=== PATIENT | male | born 1940 | race Caucasian/White ===

== ENCOUNTER 2017-03-06 11:44 | Emergency (ER) | payer MEDICARE ==
[2017-03-06 11:53] VITALS: BP 143/75
--- NOTE | 2017-03-06 14:00 | RAD ---
INDICATION: Rib pain after changing a flat COMPARISON: Bone survey July 04, 2016 TECHNIQUE: Multiple views of the ribs were obtained. FINDINGS: Bones: There is no evidence of acute rib fracture. LUNGS: The lungs are clear. There is no pneumothorax. Pleural spaces: There is no evidence of hemothorax. Other: None IMPRESSION: NO ACUTE RIB FRACTURE IS IDENTIFIED.
--- NOTE | 2017-03-21 08:18 | UC ---
Minor Trauma HPI - HPI Summary HPI Summary: Patient presents with complaints of rib pain that occurred while/after he was changing a tire. Pain has been constant and is worse with movement, and/or coughing. He denies SOB, chest pain or abdominal pain. - History of Current Complaint Hx Obtained From: Patient Onset/Duration: Sudden Onset Onset Of Pain: Post Accident Severity Initially: Moderate Severity Currently: Moderate Pain Intensity: 3 Pain Scale Used: 0-10 Numeric Mechanism Of Injury: Blunt Trauma Aggravating Factor(s): Nothing Alleviating Factor(s): Nothing <Gifty Jones - Last Filed: 03/21/17 08:31> <Olivia Klein - Last Filed: 03/22/17 16:37> - History of Current Complaint Chief Complaint: UCTrauma Stated Complaint: RIB INJURY Time Seen by Provider: 03/06/17 12:11 - Allergies/Home Medications Allergies/Adverse Reactions: Allergies Allergy/AdvReac Type Severity Reaction Status Date / Time Sulfasalazine Allergy Unknown Verified 03/06/17 11:53 Reaction Details Home Medications: Home Medications Calcium 1 tab PO DAILY 03/06/17 [History Confirmed 03/06/17] Cholecalciferol [Vitamin D] 1 tab PO DAILY 03/06/17 [History Confirmed 03/06/17] Magnesium 1 tab PO DAILY 03/06/17 [History Confirmed 03/06/17] Metoprolol Tartrate TAB* [Lopressor TAB*] 1 tab PO DAILY 03/06/17 [History Confirmed 03/06/17] Vardenafil (NF) [Levitra (NF)] 20 mg PO DAILY PRN 03/06/17 [History Confirmed ] predniSONE TAB* [Deltasone TAB*] 9 mg PO DAILY 03/06/17 [History Confirmed 03/06] PMH/Surg Hx/FS Hx/Imm Hx Previously Healthy: Yes Other History Of: Negative For: Anticoagulant Therapy - Surgical History Surgical History: Yes Surgery Procedure, Year, and Place: 2010 RIGHT CARPAL TUNNEL RELEASE, [facility]; [facility] LAMINECTOMY 10/20/13 - Family History Known Family History: Positive: Cardiac Disease, Hypertension - Social History Occupation: Employed Part-time Lives: With Family Alcohol Use: Daily Alcohol Amount: 1 glass of wine Daily Substance Use Type: None Smoking Status (MU): Never Smoked Tobacco Amount Used/How Often: SMOKE A PIPE FOR SHORT PERIOD Have You Smoked in the Last Year: No When Did the Patient Quit Smoking/Using Tobacco: MANY YEARS AGO Household Exposure Type: Cigars - Immunization History Most Recent Influenza Vaccination: 2015 Most Recent Tetanus Shot: 10/31/11 Most Recent Pneumonia Vaccination: 02/24/11 <iGfty Jones - Last Filed: 03/21/17 08:31> Review of Systems Constitutional: Negative Skin: Negative Eyes: Negative ENT: Negative Respiratory: Negative Cardiovascular: Negative Gastrointestinal: Negative Genitourinary: Negative Motor: Negative Neurovascular: Negative Musculoskeletal: Myalgia Neurological: Negative Psychological: Negative All Other Systems Reviewed And Are Negative: Yes <Gifty Jones - Last Filed: 03/21/17 08:31> Physical Exam Triage Information Reviewed: Yes Appearance: Well-Appearing Vital Signs: Initial Vital Signs Temp 97.8 F 03/06/17 11:47 Pulse 60 03/06/17 11:47 Resp 16 03/06/17 11:47 BP 143/75 03/06/17 11:47 Pulse Ox 100 03/06/17 11:47 Eye Exam: Normal ENT Exam: Normal Dental Exam: Normal Neck exam: Normal Neck: Positive: 1 Respiratory Exam: Normal Cardiovascular Exam: Normal Abdominal Exam: Normal Musculoskeletal: Positive: Other: - no visible injury on exam/ tenderness on palpation. Neurological Exam: Normal Psychological Exam: Normal Skin Exam: Normal <Gifty Jones - Last Filed: 03/21/17 08:31> Vital Signs: Initial Vital Signs Temp 97.8 F 03/06/17 11:47 Pulse 60 03/06/17 11:47 Resp 03/06/17 11:47 BP 143/75 03/06/17 11:47 Pulse Ox 100 03/06/17 11:47 <Olivia Klein - Last Filed: 03/22/17 16:37> Minor Trauma Course/Dx - Course Course Of Treatment: xrays were obtained and reviewed with the patient as negative. pain addressed f/u in tow days with pcp. - Differential Dx/Diagnosis Differential Diagnosis/HQI/PQRI: Contusion(s) Provider Diagnoses: rib contusion <Gifty Jones - Last Filed: 03/21/17 08:31> Discharge <Gifty Jones - Last Filed: 03/21/17 08:31> <Olivia Klein - Last Filed: 03/22/17 16:37> - Discharge Plan Condition: Stable Disposition: HOME Patient Education Materials: Costochondritis (ED), Contusion in Adults (ED) Referrals: Killian Alvarenga MD [Primary Care Provider] - Attestation Statement User Type: Provider - I was available for consult. This patient was seen by the OSMAR. The patient was not presented to, seen by, or examined by me. -Jerry <Olivia Klein - Last Filed: 03/22/17 16:37>
--- NOTE | 2017-03-21 08:21 | UC ---
Minor Trauma HPI - HPI Summary HPI Summary: Patient presents with complaints of rib pain that occurred while/after he was changing a tire. Pain has been constant and is worse with movement, and/or coughing. He denies SOB, chest pain or abdominal pain. - History of Current Complaint Hx Obtained From: Patient Onset/Duration: Sudden Onset Onset Of Pain: Post Accident Severity Initially: Moderate Severity Currently: Moderate Pain Intensity: 3 Pain Scale Used: 0-10 Numeric Mechanism Of Injury: Blunt Trauma Aggravating Factor(s): Nothing Alleviating Factor(s): Nothing - Risk Factors Penetrating Injury Risk Factors: Negative Compartment Syndrome Risk Factors: Pain <Gifty Jones - Last Filed: 03/21/17 10:17> <Olivia Klein - Last Filed: 03/22/17 16:35> - History of Current Complaint Chief Complaint: UCTrauma Stated Complaint: RIB INJURY Time Seen by Provider: 03/06/17 12:11 - Allergies/Home Medications Allergies/Adverse Reactions: Allergies Allergy/AdvReac Type Severity Reaction Status Date / Time Sulfasalazine Allergy Unknown Verified 03/06/17 11:53 Reaction Details Home Medications: Home Medications Calcium 1 tab PO DAILY 03/06/17 [History Confirmed 03/06/17] Cholecalciferol [Vitamin D] 1 tab PO DAILY 03/06/17 [History Confirmed 03/06/17] Magnesium 1 tab PO DAILY 03/06/17 [History Confirmed 03/06/17] Metoprolol Tartrate TAB* [Lopressor TAB*] 1 tab PO DAILY 03/06/17 [History Confirmed 03/06/17] Vardenafil (NF) [Levitra (NF)] 20 mg PO DAILY PRN 03/06/17 [History Confirmed ] predniSONE TAB* [Deltasone TAB*] 9 mg PO DAILY 03/06/17 [History Confirmed 03/06] PMH/Surg Hx/FS Hx/Imm Hx Previously Healthy: Yes Other History Of: Negative For: Anticoagulant Therapy - Surgical History Surgical History: Yes Surgery Procedure, Year, and Place: 2010 RIGHT CARPAL TUNNEL RELEASE, [facility]; [facility] LAMINECTOMY 10/20/13 - Family History Known Family History: Positive: Hypertension - Social History Occupation: Employed Part-time Lives: Alone Alcohol Use: Daily Alcohol Amount: 1 glass of wine Daily Substance Use Type: None Smoking Status (MU): Never Smoked Tobacco Amount Used/How Often: SMOKE A PIPE FOR SHORT PERIOD Have You Smoked in the Last Year: No When Did the Patient Quit Smoking/Using Tobacco: MANY YEARS AGO Household Exposure Type: Cigars - Immunization History Most Recent Influenza Vaccination: 2015 Most Recent Tetanus Shot: 10/31/11 Most Recent Pneumonia Vaccination: 02/24/11 <Gifty Jones - Last Filed: 03/21/17 10:17> Review of Systems Constitutional: Negative Skin: Negative Eyes: Negative ENT: Negative Respiratory: Negative Cardiovascular: Negative Gastrointestinal: Negative Genitourinary: Negative Motor: Negative Neurovascular: Negative Musculoskeletal: Edema, Myalgia Neurological: Negative Psychological: Negative All Other Systems Reviewed And Are Negative: Yes <Gifty Jones - Last Filed: 03/21/17 10:17> Physical Exam Triage Information Reviewed: Yes Appearance: Well-Appearing Vital Signs: Initial Vital Signs Temp 97.8 F 03/06/17 11:47 Pulse 60 03/06/17 11:47 Resp 16 03/06/17 11:47 BP 143/75 03/06/17 11:47 Pulse Ox 100 03/06/17 11:47 Eye Exam: Normal ENT Exam: Normal Dental Exam: Normal Neck exam: Normal Neck: Positive: 1 Respiratory Exam: Normal Cardiovascular Exam: Normal Abdominal Exam: Normal Musculoskeletal Exam: Normal Neurological Exam: Normal Psychological Exam: Normal Skin Exam: Normal <Gifty Jones - Last Filed: 03/21/17 10:17> Vital Signs: Initial Vital Signs Temp 97.8 F 03/06/17 11:47 Pulse 60 03/06/17 11:47 Resp 16 03/06/17 11:47 BP 143/75 03/06/17 11:47 Pulse Ox 100 03/06/17 11:47 <Olivia Klein - Last Filed: 03/22/17 16:35> Minor Trauma Course/Dx - Course Course Of Treatment: Patient had xrays of his ribs and were read as negative which was reviewed with the patient. Pain was addressed. discharged to follow up with pcp/ortho in 2 days. - Differential Dx/Diagnosis Differential Diagnosis/HQI/PQRI: Contusion(s) Provider Diagnoses: rib contusion <Gifty Jones - Last Filed: 03/21/17 10:17> Discharge <Gifty Jones - Last Filed: 03/21/17 10:17> <Olivia Klein - Last Filed: 03/22/17 16:35> - Discharge Plan Condition: Stable Disposition: HOME Patient Education Materials: Costochondritis (ED), Contusion in Adults (ED) Referrals: Killian Alvarenga MD [Primary Care Provider] - Attestation Statement User Type: Provider - I was available for consult. This patient was seen by the [facility]. The patient was not presented to, seen by, or examined by me. -Jerry <Olivia Klein - Last Filed: 03/22/17 16:35>
--- NOTE | 2017-03-21 08:25 | UC ---
Minor Trauma HPI - HPI Summary HPI Summary: Patient presents with complaints of rib pain that occurred while/after he was changing a tire. Pain has been constant and is worse with movement, and/or coughing. He denies SOB, chest pain or abdominal pain. - History of Current Complaint Hx Obtained From: Patient Onset/Duration: Sudden Onset Onset Of Pain: Post Accident Severity Initially: Moderate Severity Currently: Moderate Pain Intensity: 3 Pain Scale Used: 0-10 Numeric Mechanism Of Injury: Blunt Trauma Aggravating Factor(s): Nothing Alleviating Factor(s): Nothing <Gifty Jones - Last Filed: 03/21/17 08:22> <Olivia Klein - Last Filed: 03/22/17 16:36> - History of Current Complaint Chief Complaint: UCTrauma Stated Complaint: RIB INJURY Time Seen by Provider: 03/06/17 12:11 - Allergies/Home Medications Allergies/Adverse Reactions: Allergies Allergy/AdvReac Type Severity Reaction Status Date / Time Sulfasalazine Allergy Unknown Verified 03/06/17 11:53 Reaction Details Home Medications: Home Medications Calcium 1 tab PO DAILY 03/06/17 [History Confirmed 03/06/17] Cholecalciferol [Vitamin D] 1 tab PO DAILY 03/06/17 [History Confirmed 03/06/17] Magnesium 1 tab PO DAILY 03/06/17 [History Confirmed 03/06/17] Metoprolol Tartrate TAB* [Lopressor TAB*] 1 tab PO DAILY 03/06/17 [History Confirmed 03/06/17] Vardenafil (NF) [Levitra (NF)] 20 mg PO DAILY PRN 03/06/17 [History Confirmed ] predniSONE TAB* [Deltasone TAB*] 9 mg PO DAILY 03/06/17 [History Confirmed 03/06] PMH/Surg Hx/FS Hx/Imm Hx Previously Healthy: Yes Other History Of: Negative For: Anticoagulant Therapy - Surgical History Surgical History: Yes Surgery Procedure, Year, and Place: 2010 RIGHT CARPAL TUNNEL RELEASE, [facility]; [facility]SP LAMINECTOMY 10/20/13 - Social History Occupation: Employed Part-time Lives: Alone Alcohol Use: Daily Alcohol Amount: 1 glass of wine Daily Substance Use Type: None Smoking Status (MU): Never Smoked Tobacco Amount Used/How Often: SMOKE A PIPE FOR SHORT PERIOD Have You Smoked in the Last Year: No When Did the Patient Quit Smoking/Using Tobacco: MANY YEARS AGO Household Exposure Type: Cigars - Immunization History Most Recent Influenza Vaccination: 2016 Most Recent Tetanus Shot: 10/31/11 Most Recent Pneumonia Vaccination: 02/24/11 <Gifty Jones - Last Filed: 03/21/17 08:22> Review of Systems Constitutional: Negative Skin: Negative Eyes: Negative ENT: Negative Respiratory: Negative Cardiovascular: Negative Gastrointestinal: Negative Genitourinary: Negative Motor: Negative Neurovascular: Negative Musculoskeletal: Edema, Myalgia Neurological: Negative Psychological: Negative All Other Systems Reviewed And Are Negative: Yes <Gifty Jones - Last Filed: 03/21/17 08:22> Physical Exam Triage Information Reviewed: Yes Vital Signs: Initial Vital Signs Temp 97.8 F 03/06/17 11:47 Pulse 60 03/06/17 11:47 Resp 16 03/06/17 11:47 BP 143/75 03/06/17 11:47 Pulse Ox 100 03/06/17 11:47 Eye Exam: Normal ENT Exam: Normal Dental Exam: Normal Neck exam: Normal Neck: Positive: 1 Respiratory Exam: Normal Cardiovascular Exam: Normal Abdominal Exam: Normal Musculoskeletal Exam: Normal Musculoskeletal: Positive: Other: - Ribs; inspection no bruising, or edema noted. tenderness to palpation of left lower ribs #7-9. Neurological Exam: Normal Psychological Exam: Normal Skin Exam: Normal <Gifty Jones - Last Filed: 03/21/17 08:22> Vital Signs: Initial Vital Signs Temp 97.8 F 03/06/17 11:47 Pulse 60 03/06/17 11:47 Resp 03/06/17 11:47 BP 143/75 03/06/17 11:47 Pulse Ox 100 03/06/17 11:47 <Olivia Klein - Last Filed: 03/22/17 16:36> Minor Trauma Course/Dx - Course Course Of Treatment: Patient presents s/p rib injury. xrays were obtained and were read as negative and the results were discussed with the patient. pain addressed recommend f/u with pcp in two days. - Differential Dx/Diagnosis Provider Diagnoses: rib fractures <Gifty Jones - Last Filed: 03/21/17 08:22> Discharge <Gifty Jones - Last Filed: 03/21/17 08:22> <Olivia Klein - Last Filed: 03/22/17 16:36> - Discharge Plan Condition: Stable Disposition: HOME Patient Education Materials: Costochondritis (ED), Contusion in Adults (ED) Referrals: Killian Alvarenga MD [Primary Care Provider] - Attestation Statement User Type: Provider - I was available for consult. This patient was seen by the OSM[facility]. The patient was not presented to, seen by, or examined by me. -Jerry <Olivia Klein - Last Filed: 03/22/17 16:36>
--- NOTE | 2017-03-21 08:26 | UC ---
Minor Trauma HPI - HPI Summary HPI Summary: Patient presents with complaints of rib pain that occurred while/after he was changing a tire. Pain has been constant and is worse with movement, and/or coughing. He denies SOB, chest pain or abdominal pain. - History of Current Complaint Hx Obtained From: Patient Onset/Duration: Sudden Onset Onset Of Pain: Post Accident Severity Initially: Moderate Severity Currently: Moderate Pain Intensity: 3 Pain Scale Used: 0-10 Numeric Mechanism Of Injury: Blunt Trauma Aggravating Factor(s): Nothing Alleviating Factor(s): Nothing <Gifty Jones - Last Filed: 03/21/17 08:25> <Olivia Klein - Last Filed: 03/22/17 16:37> - History of Current Complaint Chief Complaint: UCTrauma Stated Complaint: RIB INJURY Time Seen by Provider: 03/06/17 12:11 - Allergies/Home Medications Allergies/Adverse Reactions: Allergies Allergy/AdvReac Type Severity Reaction Status Date / Time Sulfasalazine Allergy Unknown Verified 03/06/17 11:53 Reaction Details Home Medications: Home Medications Calcium 1 tab PO DAILY 03/06/17 [History Confirmed 03/06/17] Cholecalciferol [Vitamin D] 1 tab PO DAILY 03/06/17 [History Confirmed 03/06/17] Magnesium 1 tab PO DAILY 03/06/17 [History Confirmed 03/06/17] Metoprolol Tartrate TAB* [Lopressor TAB*] 1 tab PO DAILY 03/06/17 [History Confirmed 03/06/17] Vardenafil (NF) [Levitra (NF)] 20 mg PO DAILY PRN 03/06/17 [History Confirmed ] predniSONE TAB* [Deltasone TAB*] 9 mg PO DAILY 03/06/17 [History Confirmed 03/06] PMH/Surg Hx/FS Hx/Imm Hx Previously Healthy: Yes Other History Of: Negative For: Anticoagulant Therapy - Surgical History Surgical History: Yes Surgery Procedure, Year, and Place: 2010 RIGHT CARPAL TUNNEL RELEASE, [facility]; [facility]SP LAMINECTOMY 10/20/13 - Social History Occupation: Employed Part-time Lives: Alone Alcohol Use: Daily Alcohol Amount: 1 glass of wine Daily Substance Use Type: None Smoking Status (MU): Never Smoked Tobacco Amount Used/How Often: SMOKE A PIPE FOR SHORT PERIOD Have You Smoked in the Last Year: No When Did the Patient Quit Smoking/Using Tobacco: MANY YEARS AGO Household Exposure Type: Cigars - Immunization History Most Recent Influenza Vaccination: 2016 Most Recent Tetanus Shot: 10/31/11 Most Recent Pneumonia Vaccination: 02/24/11 <Gifty Jones - Last Filed: 03/21/17 08:25> Review of Systems Constitutional: Negative Skin: Negative Eyes: Negative ENT: Negative Respiratory: Negative Cardiovascular: Negative Gastrointestinal: Negative Genitourinary: Negative Motor: Negative Neurovascular: Negative Musculoskeletal: Edema, Myalgia Neurological: Negative Psychological: Negative All Other Systems Reviewed And Are Negative: Yes <Gifty Jones - Last Filed: 03/21/17 08:25> Physical Exam Triage Information Reviewed: Yes Vital Signs: Initial Vital Signs Temp 97.8 F 03/06/17 11:47 Pulse 60 03/06/17 11:47 Resp 16 03/06/17 11:47 BP 143/75 03/06/17 11:47 Pulse Ox 100 03/06/17 11:47 Eye Exam: Normal ENT Exam: Normal Dental Exam: Normal Neck exam: Normal Neck: Positive: 1 Respiratory Exam: Normal Cardiovascular Exam: Normal Abdominal Exam: Normal Musculoskeletal Exam: Normal Musculoskeletal: Positive: Other: - Ribs; inspection no bruising, or edema noted. tenderness to palpation of left lower ribs #7-9. Neurological Exam: Normal Psychological Exam: Normal Skin Exam: Normal <Gifty Jones - Last Filed: 03/21/17 08:25> Vital Signs: Initial Vital Signs Temp 97.8 F 03/06/17 11:47 Pulse 60 03/06/17 11:47 Resp 16 03/06/17 11:47 BP 143/75 03/06/17 11:47 Pulse Ox 100 03/06/17 11:47 <Olivia Klein - Last Filed: 03/22/17 16:37> Minor Trauma Course/Dx - Course Course Of Treatment: Patient presents s/p rib injury. xrays were obtained and were read as negative and the results were discussed with the patient. pain addressed recommend f/u with pcp in two days. - Differential Dx/Diagnosis Differential Diagnosis/HQI/PQRI: Contusion(s) Provider Diagnoses: rib contusion <Gifty Jones - Last Filed: 03/21/17 08:25> Discharge <Gifty Jones - Last Filed: 03/21/17 08:25> <Olivia Klein - Last Filed: 03/22/17 16:37> - Discharge Plan Condition: Stable Disposition: HOME Patient Education Materials: Costochondritis (ED), Contusion in Adults (ED) Referrals: Killian Alvarenga MD [Primary Care Provider] - Attestation Statement User Type: Provider - I was available for consult. This patient was seen by the OSMAR. The patient was not presented to, seen by, or examined by me. -Jerry <Olivia Klein - Last Filed: 03/22/17 16:37>
== END 2017-03-06 14:12 | disposition home or self-care (01) ==
LOC: UCEAST 11:44
DX: S20.20XA Contusion of thorax, unspecified, initial encounter (principal); X50.0XXA Overexertion from strenuous movement or load, initial encounter; Y93.89 Activity, other specified; Y92.9 Unspecified place or not applicable; Z88.8 Allergy status to other drugs, medicaments and biological substances; Z87.891 Personal history of nicotine dependence
CPT/HCPCS: 93005; 99211; G0463

== ENCOUNTER 2017-09-30 08:43 | Day surgery (SDC) | payer MEDICARE ==
[~2017-09-30 08:43] MED LIST: Acetaminophen TAB* 325 MG PO PRN; Buffered Lidocaine 0.9% SYRIN* 5 ML/SYR SYRINGE INTRADERM ONE
[2017-09-30] MEDS ORDERED: Neomycin/Polymy/Dex OPTH.SUSP* MAXITROL 0.1% 5 ML ONE (09:30)
[2017-09-30] MEDS ORDERED: Lidocaine 2% EPI 1:200000 MPF*10-20 ML VIAL ONE (09:30)
[2017-09-30] MEDS ORDERED: Proparacaine 0.5% OPHTH.SOL* 15 ML BTL ONE (09:30)
[2017-09-30] MEDS ORDERED: Lidocaine 1% MPF* 2 ML VIAL ONE (09:30)
[2017-09-30] MEDS ORDERED: Povidone Iodine 5% OPTH* 30 ML BTL ONE (09:30)
[2017-09-30] MEDS ORDERED: Phenylephrine 2.5% OPTH.SOL* 2 ML BTL ONE (09:30)
[2017-09-30] MEDS ORDERED: Cyclopentolate 1% OPTH.SOL* 2 ML BTL ONE (09:30)
[2017-09-30] MEDS ORDERED: acetaZOLAMIDE TAB* 250 MG ONE (09:30)
[2017-09-30] MEDS ORDERED: Ketorolac 0.5% OPHTH (NF) 0.5 % 5 ML BTL ONE (09:30)
[2017-09-30] MEDS ORDERED: Midazolam* 1 MG/ML 2 ML VIAL (2 MG) ONE (11:10)
[2017-09-30 12:06] VITALS: BP 115/60
--- NOTE | 2017-09-30 15:12 | OP ---
DATE OF OPERATION: 09/30/17 - [facility] DATE OF : 38 SURGEON: Valerio Smiley MD PREOPERATIVE DIAGNOSIS: Cataract, right eye. POSTOPERATIVE DIAGNOSIS: Cataract, right eye. OPERATIVE PROCEDURE: Extracapsular cataract extraction with intraocular lens implant right eye. DESCRIPTION OF PROCEDURE: The patient was brought to the operating room after being given 1/2% Alcaine with epinephrine drops in the preoperative area. The eye was prepped and draped in the usual sterile fashion. Sterile drape and eyelid speculum were placed. Again, topical 1/2% Alcaine with epinephrine was given. A paracentesis incision was made at the 9 o'clock position with the No.75 blade. Clear cornea incision 2.2 x 2.2-mm was created at the 12 o'clock position starting at the anterior limbus using the 2.2-mm keratome. The anterior chamber was irrigated with 0.4 mL of 1% non-preservative intracameral lidocaine and filled with DisCoVisc. A capsulorrhexis was completed using the cystotome and the Utrata forceps. Hydrodissection was performed with balanced salt solution. The lens nucleus was removed with the Phacoemulsification handpiece without incident. Cortex was removed with the irrigation-aspiration handpiece. The capsular bag was re-inflated using DisCoVisc and an [id number] 22.5 implant was inserted with the shooter. Pupil was only 3 mm, so a Malyugin ring was used to dilate the pupil prior to capsulorrhexis and removed after the insertion of the lens. The irrigation- aspiration handpiece was used to remove all residual DisCoVisc. The eye was refilled with balanced salt solution and the wound checked and found to be watertight. Topical Maxitrol drops were given. [id number]/[facility] #: [id number] [facility]
== END 2017-09-30 11:58 | disposition home or self-care (01) ==
LOC: OREAST 08:43
PROVIDERS: ATTEND Specialist
DX: H25.811 Combined forms of age-related cataract, right eye (principal); H47.291 Other optic atrophy, right eye; M31.6 Other giant cell arteritis; I48.91 Unspecified atrial fibrillation; Z79.01 Long term (current) use of anticoagulants; I10 Essential (primary) hypertension
CPT/HCPCS: A9270-GY; J2250; V2632

== ENCOUNTER 2018-02-02 08:45 | Inpatient (IN) | payer MEDICARE ==
--- NOTE | 2018-01-21 13:36 | HP ---
HISTORY AND PHYSICAL: DATE OF SURGERY: 02/02/18 DATE OF OFFICE VISIT: 01/20/18 SURGEON: Huyen Canada MD * (DICTATED BY ONIEL CHURCH) PROCEDURE: Right total knee arthroplasty. CHIEF COMPLAINT: Right knee pain. HISTORY OF PRESENT ILLNESS: Mr. Garibay is a 77-year-old gentleman who has continued complaints of right knee pain secondary to end-stage osteoarthritis. He has failed conservative treatment and elected to proceed with a right total knee arthroplasty which is scheduled for 02/02/18 PAST MEDICAL HISTORY: Polymyalgia rheumatica, hypertension, AFib, and BPH. PAST SURGICAL HISTORY: Cervical diskectomy, right carpal tunnel release, and cataract removal. CURRENT MEDICATIONS: 1. Eliquis 2.5 mg twice a day. 2. Magnesium oxide 250 mg daily. 3. Milk thistle. 4. Vitamin D. 5. Vitamin C. 6. Melatonin. 7. Tamsulosin 0.4 mg twice a day. 8. Metoprolol 25 mg twice a day. 9. Sotalol 80 mg twice a day. 10. Probiotic calcium. 11. Budesonide 3 mg daily. ALLERGIES: SULFASALAZINE. FAMILY HISTORY: Diabetes, Parkinson's, liver disease, and cancer. SOCIAL HISTORY: He is a 77-year-old gentleman, lives with his . He does not smoke or use drugs. He uses occasional alcohol REVIEW OF SYSTEMS: A complete 14-point review of systems was reviewed with the patient and was all negative and noncontributory. Denies history of DVT, PE, hepatitis, HIV, or anesthesia problems. PHYSICAL EXAMINATION GENERAL: He is well developed, well nourished, in no acute distress. VITAL SIGNS: He stands 6 feet 3 inches tall and weighs 147 pounds. His blood pressure is 148/84 and heart rate is 64. HEENT: Normocephalic and atraumatic. NECK: Supple. No palpable lymph nodes. PULMONARY: The lungs are clear to auscultation bilaterally. CARDIO: Regular, rate, and rhythm. Strong S1 and S2. ABDOMEN: Soft, nontender, and nondistended. NEUROLOGIC: He is alert and oriented x3. MUSCULOSKELETAL: Right lower extremity, the skin is intact. There are no open wounds or abrasions. There is a moderate joint fusion. He has some tenderness over the medial and lateral joint line. Range of motion is 25 to 100 degrees of flexion. 5/5 lower extremity strength. 2+ dorsalis pedis pulses and intact sensation. There is severe patellofemoral crepitus and severe pain with range of motion. ASSESSMENT AND PLAN: Mr. Garibay is a 77-year-old gentleman with end-stage osteoarthritis of the right knee who has failed conservative treatment and elected to proceed with a right total knee arthroplasty which is scheduled for 02/02/[address] Canada discussed the risks and the benefits of the surgery at today's visit and all of his questions were answered. He will follow up with Dr. Canada 2 weeks after the surgery. [facility]IEL CHURCH [id number]/[facility] #: [id number] [facility]
[~2018-02-02 08:45] MED LIST changes: -Acetaminophen TAB* 325 MG PO PRN
--- OUTSIDE RECORDS SUMMARY | 2018-02-02 08:49 | XMS REPORT ---
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 Killian Alvarenga MD Primary Care Physician Unavailable Payers Type Date Identification Payment Subscriber Numbers Provider Health Maintenance Effective: Policy Number: Medicare Sourav Dean ([facility]) 06/15/2013 [id number] [facility] Group Number: [id number] [address] [address] PayID: [id number] KI Yu 05[address] Health Maintenance Expires: Policy Number: Medicare Sourav Dean ([facility]) 06/14/2013 [id number] [facility] Lani PayID: [id number] [address] [address] KI Yu [address] Problems Date Description Provider Status Onset: 09/06/2013 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 Active Onset: 12/11/2017 Localized, primary osteoarthritis Huyen Canada M.D. Active Family History Date Family Member(s) Problem(s) Comments General Diabetes General Hypertension General Alzheimer's Disease General Stomach Cancer General Rheumatoid Arthritis Social History Type Date Description Comments Marital Status Lives With Occupation Retired Cigarette Use Never Smoked Cigarettes Pt denies smoking cigar, pipe, e-cigarettes, or using chewing tobacco ETOH Use Consumes 1 glass of wine per 4-5oz day Recreational Drug Use Denies Drug Use Smoking Patient has never smoked Daily Caffeine Consumes on average 2 cups of regular coffee per day Exercise Type/Frequency Exercises regularly Allergies, Adverse Reactions, Alerts Date Description Reaction Status Severity Comments 02/27/2016 Sulfasalazine active 09/06/2013 NKDA inactive Medications Medication Date Status Form Strength Qnty SIG Indications Ordering Provider Eliquis 10/21/ Active Tablets 2.5mg 90tab 1 tablet by Freddie López 2018 s mouth twice Alegria, a day. DO FACC Magnesium Oxide 05/17/ Active Tablets 250mg take one Freddie López -MG Supplement 2015 tablet daily Alegria, DO FACC Compression 04/19/ Active Misc Please have R60.0 Freddie López Stockings 2014 fitted with Alegria, appropriate DO FACC size/pressur e for dependent edema Milk Thistle / Active Capsules 300mg 1 cap po Unknown 0000 daily Vitamin D High / Active Capsules 1000Unit 1 cap po Unknown Potency 0000 daily Vitamin C / Active Chewtabs 500mg 1 by mouth Unknown 0000 every day Melatonin TR / Active Tablets 1mg 1/2 tab po Unknown 0000 ER at bedtime as needed Tamsulosin HCL / Active Capsules 0.4mg 90cap 1 by mouth Unknown 0000 s daily ( decreased from 2 tab daily since September 2016) Metoprolol / Active Tablets 25mg 180ta 1 tablet by Freddie López Tartrate 0000 bs mouth twice Alegria, daily DO FACC Sotalol HCL / Active Tablets 80mg 180ta 1 tablet by Freddie López 0000 bs mouth twice Alegria, daily DO FACC Probiotic / Active Capsules 1 by mouth Unknown 0000 every day Calcium / Active Capsules 250mg 1 po daily Unknown 0000 Budesonide / Active Caps DR 3mg 1 by mouth Unknown 0000 Part every day as directed Amoxicillin / Active Unknown 0000 Eliquis 08/13/ Hx Tablets 5mg 1 by mouth Unknown 2017 - twice a day 2017 Augmentin 07/09/ Hx Tablets 500-125mg 20tab one by mouth K11.21 Be 2016 - s twice a day Ruparelia days, Not , M.D. 2015 taking Metoprolol 04/19/ Hx Tablets 100mg 60tab 2 tabs by Freddie López Succinate ER 2014 - ER 24HR s mouth every Alegria, 05/16/ morning DO FAC 2014 Nifedipine ER 08/03/ Hx Tablets 30mg 30tab 1 po qd Scar López 2013 - ER 24HR s (winter Chikis, ) Danilo 2013 Nifedipine 07/20/ Hx Capsules 10mg 180ca 1 bid Scar López 2014 - ps (pradeep Diop, only) Danilo 2013 Amlodipine /00/ Hx Tablets 2.5mg 100ta 1 po qd Unknown Besylate 0000 - bs 2014 Aspirin Adult /00/ Hx Chewtabs 81mg 30uni 1 po qd Unknown Low Strength 0000 - ts 2014 Glucosamine /00/ Hx Capsules 1500Com 1 po qd Unknown Chondroitin 1500 0000 - Complex 2013 Diphenoxylate-At 00/ Hx Tablets 2.5-0.025 jae Kellogg 0000 - mg Georgi, 2013 Afeditab CR 00/ Hx Tablets 30mg 1 po qd Unknown 0000 - ER 24HR (winter) 2013 Cholestyramine 00/00/ Hx Packet 4gm 20uni 1 packet Unknown 0000 - ts qday 2013 Imodium A-D 00/ Hx Tablets 2mg 50tab take 1 Unknown 0000 - s tablet by 03/15/ mouth 8 2014 times a day after each loose stool for diarrhea Budesonide ER 00/00/ Hx Caps ER 3mg 90cap 2 caps a day Unknown 0000 - 24HR s 2014 Magnesium /00/ Hx Tablets 200mg 1 by mouth Unknown 0000 - every day 2014 Probiotic /00/ Hx Capsules 1 by mouth Unknown Acidophilus And 0000 - every day Bifidus 2015 Prednisone 00/00/ Hx Tablets 5mg 2 qd Unknown 0000 - 2014 Doxycycline 00/00/ Hx Capsules 100mg 2 qd Unknown Hyclate 0000 - 2014 Sulfasalazine /00/ Hx Tablets 500mg 1 to 4 tabs Unknown 0000 - daiy 2015 Budesonide ER 00/00/ Hx Caps ER 3mg 1-2 cap po Unknown 0000 - 24HR daily (on until 2017 prednisone finished) Fish Oil 00/00/ Hx Capsules 1000mg 1 by mouth Unknown 0000 - every day 2015 Melatonin /00/ Hx Tablets 1mg 1/2 tablet Unknown 0000 - po as needed 2015 sleep Prednisone 0000/ Hx Tablets 5mg 1 to 2 tabs Unknown 0000 - po daily prn 2015 Iron 00/ Hx Tablets 28mg 1 by mouth Unknown 0000 - every other day(pt takes 2018 sporadically ) Prednisone 0000/ Hx Tablets 1mg 1 by mouth Unknown 0000 - every day 12/29/ for a week 2017 then will stop ( finished treatment 11/15/17) Levitra / Hx Tablets 20mg as needed Unknown 0000 - 2017 Medications Administered in Office Medication Date Status Form Strength Qnty SIG Indications Ordering Provider Technetium TC Administered Injection Freddie S. 99M 015 DO Raji Tetrofosmin, FACC Per Unit Dose Up To 40 Millicuries Celestone 3 mg Administered Injection Yeni and 3mg 012 Stephen leija M.D. Celestone 3 mg Administered Injection Yeni and 3mg 012 Stephen leija M.D. Celestone 3 mg Administered Injection Yeni and 3mg 011 Stephen leija M.D. Vital Signs Date Vital Result Comment 01/20/2018 Height 63.5 inches 5'3.50" Weight 147.00 lb Heart Rate 64 /min BP Systolic 148 mmHg BP Diastolic 84 mmHg BMI (Body Mass Index) 25.6 kg/m2 01/11/2018 Height 63.5 inches 5'3.50" Weight 149.00 lb Heart Rate 64 /min BP Systolic Sitting 106 mmHg Lue reg cuff BP Diastolic Sitting 70 mmHg Lue reg cuff BP Systolic Standing 110 mmHg Lue reg cuff BP Diastolic Standing 70 mmHg Lue reg cuff Respiratory Rate 16 /min BMI (Body Mass Index) 26.0 kg/m2 12/11/2017 Height 63.5 inches 5'3.50" Weight 148.00 lb Heart Rate 64 /min BP Systolic 140 mmHg BP Diastolic 84 mmHg Pain Level 4 BMI (Body Mass Index) 25.8 kg/m2 10/21/2017 Height 65 inches 5'5" Weight 152.00 lb Heart Rate 72 /min BP Systolic Sitting 132 mmHg lue reg cuff BP Diastolic Sitting 70 mmHg lue reg cuff BP Systolic Standing 118 mmHg lue reg cuff BP Diastolic Standing 62 mmHg lue reg cuff Respiratory Rate 16 /min BMI (Body Mass Index) 25.3 kg/m2 Ejection Fraction 60-65% 04/10/2015 echo 07/07/2017 Height 65 inches 5'5" Weight 145.00 lb Heart Rate 71 /min BP Systolic Sitting 130 mmHg BP Diastolic Sitting 78 mmHg Respiratory Rate 16 /min BMI (Body Mass Index) 24.1 kg/m2 02/24/2017 Height 65 inches 5'5" Weight 154.00 lb with shoes Heart Rate 62 /min BP Systolic Sitting 134 mmHg Lue reg cuff BP Diastolic Sitting 74 mmHg Lue reg cuff BP Systolic Standing 136 mmHg Lue reg cuff BP Diastolic Standing 80 mmHg Lue reg cuff Respiratory Rate 17 /min BMI (Body Mass Index) 25.6 kg/m2 Ejection Fraction 60-65% 04/10/2015-echo 08/15/2016 Height 65 inches 5'5" Weight 152.00 lb with shoes Heart Rate 74 /min BP Systolic Sitting 140 mmHg Rue reg cuff BP Diastolic Sitting 70 mmHg Rue reg cuff BP Systolic Standing 138 mmHg Rue reg cuff BP Diastolic Standing 70 mmHg Rue reg cuff Respiratory Rate 16 /min BMI (Body Mass Index) 25.3 kg/m2 Ejection Fraction 60-65% 04/10/2015-echo 04/16/2016 Heart Rate 72 /min BP Systolic 170 mmHg BP Diastolic 90 mmHg Respiratory Rate 18 /min Body Temperature 97.7 F 04/15/2016 Height 65 inches 5'5" Weight 140.00 lb Heart Rate 82 /min BP Systolic Sitting 150 mmHg BP Diastolic Sitting 78 mmHg Respiratory Rate 18 /min Body Temperature 98.3 F BMI (Body Mass Index) 23.3 kg/m2 04/01/2016 Height 65 inches 5'5" Weight 140.00 lb Heart Rate 64 /min BP Systolic Sitting 142 mmHg BP Diastolic Sitting 70 mmHg BMI (Body Mass Index) 23.3 kg/m2 02/27/2016 Height 65 inches 5'5" Weight 146.00 lb w/ shoes Heart Rate 68 /min BP Systolic Sitting 138 mmHg Rue, reg cuff BP Diastolic Sitting 74 mmHg Rue, reg cuff BP Systolic Standing 134 mmHg Rue BP Diastolic Standing 78 mmHg Rue Respiratory Rate 16 /min BMI (Body Mass Index) 24.3 kg/m2 Ejection Fraction 60-65% as of 04/10/15 echo 09/25/2015 Height 65 inches 5'5" Weight 139.00 lb Heart Rate 64 /min BP Systolic Sitting 132 mmHg BP Diastolic Sitting 78 mmHg Respiratory Rate 16 /min BMI (Body Mass Index) 23.1 kg/m2 08/16/2015 Height 65 inches 5'5" Weight 136.00 lb with shoe Heart Rate 60 /min BP Systolic Sitting 128 mmHg Ra reg cuff BP Diastolic Sitting 70 mmHg Ra reg cuff BP Systolic Standing 126 mmHg Ra reg cuff BP Diastolic Standing 72 mmHg Ra reg cuff Respiratory Rate 16 /min BMI (Body Mass Index) 22.6 kg/m2 Ejection Fraction 60-65% 04/10/15 07/09/2015 Weight 139.00 lb Heart Rate 62 /min BP Systolic 110 mmHg BP Diastolic 70 mmHg 05/17/2015 Height 65 inches 5'5" Weight 139.00 lb with shoes Heart Rate 70 /min sit and 74 stand BP Systolic Sitting 146 mmHg LA reg cuff BP Diastolic Sitting 72 mmHg LA reg cuff BP Systolic Standing 148 mmHg LA reg cuff BP Diastolic Standing 78 mmHg LA reg cuff Respiratory Rate 17 /min BMI (Body Mass Index) 23.1 kg/m2 Ejection Fraction 60-65% date 04/10/15 ECHO 05/01/2015 Height 65 inches 5'5" Weight 142.00 lb with shoes Heart Rate 68 /min BP Systolic Sitting 132 mmHg LA, reg cuff BP Diastolic Sitting 74 mmHg LA, reg cuff BP Systolic Standing 126 mmHg LA BP Diastolic Standing 74 mmHg LA Respiratory Rate 16 /min BMI (Body Mass Index) 23.6 kg/m2 Ejection Fraction 60-65% 04/10/2015 04/19/2015 Height 65 inches 5'5" Weight 142.00 lb w/ shoes Heart Rate 102 /min irreg BP Systolic Sitting 110 mmHg Rue, reg cuff BP Diastolic Sitting 80 mmHg Rue, reg cuff BP Systolic Standing 96 mmHg Rue BP Diastolic Standing 60 mmHg Rue Respiratory Rate 18 /min BMI (Body Mass Index) 23.6 kg/m2 Ejection Fraction 60-65% as of 04/10/15 echo 02/06/2015 Height 65 inches 5'5" Weight 142.00 lb Heart Rate 78 /min BP Systolic Sitting 140 mmHg BP Diastolic Sitting 80 mmHg Pain Level 1 hands BMI (Body Mass Index) 23.6 kg/m2 11/23/2014 Height 65 inches 5'5" Weight 139.00 lb Heart Rate 68 /min BP Systolic Sitting 124 mmHg BP Diastolic Sitting 70 mmHg Respiratory Rate 20 /min BMI (Body Mass Index) 23.1 kg/m2 04/12/2014 Height 65 inches 5'5" Weight 130.00 lb Heart Rate 72 /min BP Systolic Sitting 126 mmHg BP Diastolic Sitting 66 mmHg Respiratory Rate 16 /min BMI (Body Mass Index) 21.6 kg/m2 02/03/2014 Weight 135.00 lb Heart Rate 68 /min BP Systolic Sitting 128 mmHg BP Diastolic Sitting 82 mmHg Pain Level 0 12/20/2013 Height 65 inches 5'5" Weight 135.00 lb Heart Rate 60 /min BP Systolic Sitting 110 mmHg BP Diastolic Sitting 60 mmHg Pain Level 0 BMI (Body Mass Index) 22.5 kg/m2 11/08/2013 Height 65 inches 5'5" Weight 133.00 lb BP Systolic 116 mmHg BP Diastolic 66 mmHg Pain Level 0 BMI (Body Mass Index) 22.1 kg/m2 10/12/2013 Height 65 inches 5'5" Weight 143.00 lb Heart Rate 80 /min BP Systolic Sitting 142 mmHg BP Diastolic Sitting 80 mmHg Respiratory Rate 16 /min BMI (Body Mass Index) 23.8 kg/m2 09/23/2013 Height 65 inches 5'5" Weight 143.00 lb BP Systolic 112 mmHg BP Diastolic 80 mmHg Pain Level 0 BMI (Body Mass Index) 23.8 kg/m2 09/06/2013 Height 65 inches 5'5" Weight 144.00 lb BP Systolic 120 mmHg BP Diastolic 74 mmHg Pain Level 0 BMI (Body Mass Index) 24.0 kg/m2 08/12/2013 Heart Rate 70 /min BP Systolic Sitting 150 mmHg BP Diastolic Sitting 80 mmHg Respiratory Rate 16 /min 08/06/2010 Height 65 inches 5'5" Weight 145.00 lb Heart Rate 87 /min BP Systolic 153 mmHg BP Diastolic 89 mmHg BMI (Body Mass Index) 24.1 kg/m2 Results Test Date Test Result H/L Range Note CBC No Diff 10/12/2013 White Blood Count 7.0 10^3/uL 4.8-10.8 Red Blood Count 4.29 10^6/uL 4.0-5.4 Hemoglobin 13.6 g/dL Low 14.0-18.0 Hematocrit 40 % Low 42-52 Mean Corpuscular Volume 92 fL 80-94 Mean Corpuscular Hemoglobin 32 pg High 27-31 Mean Corpuscular HGB Conc 34 g/dL 31-36 Red Cell Distribution Width 13 % 10.5-15 Platelet Count 312 10^3/uL 150-450 Mean Platelet Volume 6 um3 Low 7.4-10.4 Basic Metabolic Panel 10/12/2013 Sodium 132 mmol/L Low 133-145 Potassium 4.3 mmol/L 3.7-5.6 Chloride 99 mmol/L Low 101-111 Co2 Carbon Dioxide 28 mmol/L 22-32 Anion Gap 5 mmol/L 2-11 Glucose 104 mg/dL High 70-100 Blood Urea Nitrogen 12 mg/dL 6-24 Creatinine 0.81 mg/dL 0.67-1.17 BUN/Creatinine Ratio 14.8 8-20 Calcium 8.6 mg/dL 8.6-10.3 Egfr Non- 93.2 >60 Egfr 119.8 >60 1 Type & Screen 10/12/2013 Patient Blood Type B Positive Antibody Screen NEGATIVE 1 Because ethnic data is not always readily available, this report includes an eGFR for both -Americans and non- Americans. The National Kidney Disease Education Program (NKDEP) does not endorse the use of the MDRD equation for patients that are not between the ages of 18 and 70, are , have extremes of body size, muscle mass, or nutritional status, or are non- or non-. According to the National Kidney Foundation, irrespective of diagnosis, the stage of the disease is based on the level of kidney function: Stage Description GFR(mL/min/1.73 m(2)) 1 Kidney damage with normal or decreased GFR 90 2 Kidney damage with mild decrease in GFR 60-89 3 Moderate decrease in GFR 30-59 4 Severe decrease in GFR 15-29 5 Kidney failure <15 (or dialysis) Procedures Date CPT Code Description Status Comment 01/11/2018 00800 EKG Tracing & Interpretation Completed 02/24/2017 25332 EKG Tracing & Interpretation Completed 08/15/2016 54305 EKG Tracing & Interpretation Completed 05/12/2016 Diabetic Retinal Eye Exam Completed Document: 05/12/16 - Consult Ophthalmology - Baljit 04/11/2016 Diabetic Retinal Eye Exam Completed Document: 04/11/16 - Consult Ophthalmology - Valerio 02/27/2016 40626 EKG Tracing & Interpretation Completed 08/16/2015 40166 EKG Tracing & Interpretation Completed 05/17/2015 14947 EKG Tracing & Interpretation Completed 05/08/2015 79069 EKG, Interpretation Only Completed 05/07/2015 37605 EKG, Interpretation Only Completed 05/06/2015 39221 EKG, Interpretation Only Completed 05/05/2015 71144 EKG, Interpretation Only Completed 05/01/2015 14570 EKG Tracing & Interpretation Completed 04/25/2015 76007 Stress Test Completed 04/25/2015 16258 Myocardial Perfusion Imaging Completed Tomographic (Spect) Multiple Studies 04/19/2015 39821 EKG Tracing & Interpretation Completed 04/10/2015 00412 ECHO Transthorasic Realtime Completed 2D W Doppler & Color Flow Hosp 10/20/2013 13282 Laminectomy W/Expl &/Or Completed Decomp Of Spinal Cord &/Or Cauda Equina 10/12/2013 78733 EKG, Interpretation Only Completed 10/27/2011 Injection, Carpal Tunnel Completed 03/26/2011 86811 Carpal Tunnel Release Completed 03/26/201182756 Carpal Tunnel Release Completed 12/05/2010 92273 Rad Shoulder Comp, Min. 2 Completed Views 08/06/2010 Injection, Carpal Tunnel Completed Encounters Type Date Location Provider CPT E/M Dx Office Visit 01/11/2018 [facility] Alegria, 67447 Z01.810 3:40p [facility] Office Visit 12/11/2017 [facility] Huyen Canada M.D. 15524 M25.561 10:00a Of [place] M25.562 M25.461 M25.462 M17.0 Office Visit 10/21/2017 3:40p [facility] [place] [address] I48.0 [facility] M31.6 Office Visit 07/07/2017 2:30p [facility] Scar Diop 33677 M31.6 Services Of Audra Carrasco M47.12 Office Visit 02/24/2017 9:40a [facility] [place] [address] I48.0 [facility] M31.6 Office Visit 08/15/2016 8:40a [facility] [place] [place] [address] I48.0 [facility] FACC M31.6 Office Visit 04/16/2016 8:30a [facility] Warren Parminder, 38457 M31.6 [facility] Office Visit 04/15/2016 2:30p [facility] Zurita, 94434 M31.6 [facility] MD Office Visit 04/01/2016 9:30a [facility] Scar López 92149 M47.12 Danilo Diop Office Visit 02/27/2016 8:40a [facility] Freddie Alegria, 35914 I48.0 DO FACC Office Visit 09/25/2015 9:45a [facility] Scar López 03217 G56.01 Danilo Diop M47.12 Office Visit 08/16/2015 1:40p [facility] [place] [address] I48.0 [facility] FAC Office Visit 07/09/2015 2:15p [facility] [place] [facility], 30634 K11.21 [facility] 2:00p [facility] [place] [address] I48.0 [facility] E87.1 D64.9 Office Visit 05/08/2015 2:33p [facility] Bernice Gunter, ADMISSIONS CONSULTANT 41017 I48.0 Hospitalists E22.2 Office Visit 05/07/2015 2:32p [facility] Bernice Gunter, ADMISSIONS CONSULTANT 23117 I48.0 Hospitalists E22.2 Office Visit 05/06/2015 2:32p [facility],neeta Gunter, ADMISSIONS CONSULTANT 82269 I48.0 Hospitalists E22.2 Office Visit 05/06/2015 3:26p [facility] Nieves Silva M.D. 13973 I48.0 [facility] E87.1 Office Visit 05/05/2015 2:31p [facility],neeta Gunter, ADMISSIONS CONSULTANT 58653 I48.0 Hospitalists E22.2 Office Visit 05/01/2015 2:00p [facility] [place] [address] I48.91 [facility] FACC I48.0 D64.9 Office Visit 04/19/2015 10:20a [facility] [place] [address] I48.91 [facility] FACC K52.89 O36.0125 R60.0 D64.9 Office Visit 04/11/2015 11:38a [facility] Viviana Squires N.P. 21583 I48.91 Hospitalists R77.8 M19.90 Office Visit 04/11/2015 12:41p [facility] [place] [address] I48.0 [facility] FACC I10 Office Visit 04/10/2015 11:37a [facility], Danii Zurita, 18014 R77.8 Hospitalists N.P. I48.91 M19.90 Office Visit 02/06/2015 1:40p [facility] Jaguar Neil, 71928 721.1 Of Audra Carrasco V45.89 Office Visit 11/23/2014 10:00a [facility] Scar Diop, 63994 721.1 Danilo 723.4 354.0 Office Visit 04/12/2014 8:45a [facility] Scar Diop, 81079 721.1 Services Of Audra Carrasco 723.4 Office Visit 02/03/2014 2:00p [facility] Jaguar Neil, 07445 721.1 Of Audra Carrasco V45.89 Office Visit 10/22/2013 2:24p [facility], Fabian Mckee, 46175 788.20 Hospitaledy Carrasco 560.32 401.9 Office Visit 10/12/2013 8:30a [facility] Scar Diop, 47175 721.1 Services Of Audra Carrasco Office Visit 09/23/2013 1:40p [facility] Jaguar Neil, 19247 721.1 Of Audra Carrasco Office Visit 09/06/2013 2:20p [facility] Jaguar Neil, 46065 721.1 Of Audra Carrasco Office Visit 08/12/2013 3:45p [facility] Scar Diop 74841 723.4 Services Of Paper Ruler M.D. 721.1 Office Visit 07/20/2013 9:00a [facility] Scar Diop, 11450 723.4 Services Of Paper Ruler M.D. 354.0 443.0 Office Visit 11/17/2011 9:15a [facility] Yeni Yoder, 83387 354.0 Of [facility] M.DLacho Office Visit 10/27/2011 8:15a [facility] Yeni Yoder 04970 354.0 Of [facility] M.DLacho Office Visit 09/09/2011 8:15a [facility] Yeni Yoder 38198 354.0 Of C.M.Rosio MLachoDLacho Office Visit 07/14/2011 9:00a [facility] Yeni Yoder 70678 354.0 Of [facility]. M.DLacho Office Visit 06/17/2011 8:00a [facility] Hema Petersen M.D. 86391 840.4 Of [facility] Office Visit 02/11/2011 8:00a [facility] Yeni Yoder 21227 354.0 Of C.M.Rosio Carrasco Office Visit 12/05/2010 9:30a [facility] Hema Petersen M.D. 05281 716.91 Of [facility] Office Visit 08/06/2010 9:15a [facility] Yeni Yoder, 99591 354.0 Of C.M.ALacho MLachoDLacho Plan of Care Future Appointment(s):02/02/2018 1:00 pm - Alexandr Liang PA-C at [facility]02/02/2018 1:00 pm - ONIEL Foreman at [facility]02/02/2018 1:00 pm - Huyen Canada M.D. at [facility]02/17/2018 10:00 am - Huyen Canada M.D. at [facility]01/20/2018 - Huyen Canada M.D.M25.561 Pain in right kneeFollow up:Follow up: 2 weeks after ilyohncF19.461 Effusion, right kneeM17.0 Bilateral primary osteoarthritis of knee
--- OUTSIDE RECORDS SUMMARY | 2018-02-02 08:50 | XMS REPORT ---
:1940 External Reference #:[id number] Author Organization [facility] Address [address] [place] [address] Phone [phone] Care Team Providers Name Role Phone Scar Diop MD Care Team Information Entry Level Assistant Manager Unavailable Killian Alvarenga MD Primary Care Physician Unavailable Payers Type Date Identification Payment Subscriber Numbers Provider Health Maintenance Effective: Policy Number: Medicare Sourav Dean ([facility]) 06/15/2013 [id number] [facility] Group Number: [id number] [address] [address] PayID: [id number] [place] [address] Health Maintenance Expires: Policy Number: Medicare Sourav Dean ([facility]) 06/14/2013 [id number] [facility] Lani PayID: [id number] [address] [address] K[place] Yu [address] Problems Date Description Provider Status Onset: 09/06/2013 [...] Unknown 0000 Part every day as directed Eliquis 08/13/ Hx Tablets 5mg 1 by mouth Unknown 2017 - twice a day 2017 Augmentin 07/09/ Hx Tablets 500-125mg 20tab one by mouth K11.21 Be 2016 - s twice a day Ruparelia days, Not , M.D. 2015 taking Metoprolol 04/19/ Hx Tablets 100mg 60tab 2 tabs by Freddie López Succinate ER 2014 - ER 24HR s mouth every Alegria, 05/16/ morning DO FACC 2014 Nifedipine ER 08/03/ Hx Tablets 30mg 30tab 1 po qd Scar López 2013 - ER 24HR s (winter Chikis, ) Danilo 2013 Nifedipine 07/20/ Hx Capsules 10mg 180ca 1 bid Scar López 2014 - ps (winter Chikis, only) Danilo 2013 Amlodipine // Hx Tablets 2.5mg 100ta 1 po qd Unknown Besylate 0000 - bs 2014 Aspirin Adult / Hx Chewtabs 81mg 30uni 1 po qd Unknown Low Strength 0000 - ts 2014 Glucosamine 00/ Hx Capsules 1500Com 1 po qd Unknown Chondroitin 1500 0000 - Complex 2013 Diphenoxylate-At / Hx Tablets 2.5-0.025 jae Kellogg 0000 - mg Georgi, 2013 Afeditab CR / Hx Tablets 30mg 1 po qd Unknown 0000 - ER 24HR (winter) 2013 Cholestyramine / Hx Packet 4gm 20uni 1 packet Unknown [...] 2 qd Unknown 0000 - 2014 Doxycycline /00/ Hx Capsules 100mg 2 qd Unknown Hyclate 0000 - 2014 Sulfasalazine /00/ Hx Tablets 500mg 1 to 4 tabs Unknown 0000 - daiy 2015 Budesonide ER 00/00/ Hx Caps ER 3mg 1-2 cap po Unknown 0000 - 24HR daily (on until 2018 prednisone finished) Fish Oil 00/00/ Hx Capsules 1000mg 1 by mouth Unknown 0000 - every day 2015 Melatonin 00/00/ Hx Tablets 1mg 1/2 tablet Unknown 0000 - po as needed promote 2015 sleep Prednisone 00/ Hx Tablets 5mg 1 to 2 tabs [...] M.D. Vital Signs Date Vital Result Comment 01/11/2018 Height 63.5 inches 5'3.50" Weight 149.00 [...] Date CPT Code Description Status Comment 01/11/2018 41950 EKG Tracing & Interpretation Completed 02/24/2017 13510 EKG Tracing & Interpretation Completed 08/15/2016 67150 EKG Tracing & Interpretation Completed 05/12/2016 Diabetic Retinal Eye Exam Completed Document: 05/12/16 - Consult Ophthalmology - Baljit 04/11/2016 Diabetic Retinal Eye Exam Completed Document: 04/11/16 - Consult Ophthalmology - Valerio 02/27/2016 17800 EKG Tracing & Interpretation Completed 08/16/2015 61516 EKG Tracing & Interpretation Completed 05/17/2015 50877 EKG Tracing & Interpretation Completed 05/08/2015 96925 EKG, Interpretation Only Completed 05/07/2015 09246 EKG, Interpretation Only Completed 05/06/2015 67814 EKG, Interpretation Only Completed 05/05/2015 36717 EKG, Interpretation Only Completed 05/01/2015 00051 EKG Tracing & Interpretation Completed 04/25/2015 88053 Stress Test Completed 04/25/2015 17523 Myocardial Perfusion Imaging Completed Tomographic (Spect) Multiple Studies 04/19/2015 65983 EKG Tracing & Interpretation Completed 04/10/2015 23298 ECHO Transthorasic Realtime Completed 2D W Doppler & Color Flow Hosp 10/20/2013 12159 Laminectomy W/Expl &/Or Completed Decomp Of Spinal Cord &/Or Cauda Equina 10/12/2013 47405 EKG, Interpretation Only Completed 10/27/2011 Injection, Carpal Tunnel Completed 03/26/2011 Carpal Tunnel Release Completed 03/26/201148861 Carpal Tunnel Release Completed 12/05/2010 97391 Rad Shoulder Comp, Min. 2 Completed Views 08/06/2010 Injection, Carpal Tunnel Completed Encounters Type Date Location Provider CPT E/M Dx Office Visit 12/11/2017 [facility] Huyen Canada M.D. 98236 M25.561 10:00a [facility] [place] M25.562 M25.461 M25.462 M17.0 Office Visit 10/21/2017 3:40p [facility] [place] [address] I48.0 [facility] FACC M31.6 Office Visit 07/07/2017 2:30p [facility] Scar Diop 35363 M31.6 Services Of Audra Carrasco M47.12 Office Visit 02/24/2017 9:40a [facility] [place] [address] I48.0 [facility] FACC M31.6 Office Visit 08/15/2016 8:40a [facility] [place] [address] I48.0 [facility] FACC M31.6 Office Visit 04/16/2016 8:30a [facility] [place], 63122 M31.6 Audra MATHUR Office Visit 04/15/2016 2:30p [facility] [place], 13312 M31.6 Audra MATHUR Office Visit 04/01/2016 9:30a [facility] Scar López 96422 M47.12 Danilo Diop Office Visit 02/27/2016 8:40a [facility] Freddie Alegria, [address]4082 I48.0 DO FACC Office Visit 09/25/2015 9:45a [facility] Scar GaliciaLacho 25793 G56.01 Danilo Diop M47.12 Office Visit 08/16/2015 1:40p [facility] [place] [address] I48.0 [facility] FACC Office Visit 07/09/2015 2:15p [facility] [place], [address] K11.21 [facility] 05/17/2015 2:00p [facility] [place] [address] I48.0 [facility] FACC E87.1 D64.9 Office Visit 05/08/2015 2:33p [facility] Bernice Gunter, PRACTICE PHYSICIAN 83605 I48.0 Hospitalists E22.2 Office Visit 05/07/2015 2:32p [facility] Bernice Gunter, PRACTICE PHYSICIAN 73032 I48.0 Hospitalists E22.2 Office Visit 05/06/2015 2:32p [facility] Bernice Gunter, PRACTICE PHYSICIAN 24219 I48.0 Hospitalists E22.2 Office Visit 05/06/2015 3:26p [facility] Nieves Silva M.D. 57749 I48.0 [facility] E87.1 Office Visit 05/05/2015 2:31p [facility] Bernice Gunter, PRACTICE PHYSICIAN 59159 I48.0 Hospitalists E22.2 Office Visit 05/01/2015 2:00p [facility] [place] [address] I48.91 [facility] FACC I48.0 D64.9 Office Visit 04/19/2015 10:20a [facility] [place] [address] I48.91 [facility] FACC K52.89 O36.0125 R60.0 D64.9 Office Visit 04/11/2015 11:38a [facility] Viviana Squires, N.P. 64134 I48.91 Hospitalists R77.8 M19.90 Office Visit 04/11/2015 12:41p [facility] [place] [address] I48.0 [facility] I10 Office Visit 04/10/2015 11:37a [facility], Danii GaliciaLacho [place], 21155 R77.8 Hospitalists N.P. I48.91 M19.90 Office Visit 02/06/2015 1:40p [facility] Jaguar Neil, 23617 721.1 Of Audra Lockhart.Marlin V45.89 Office Visit 11/23/2014 10:00a [facility] Scar Diop, 25383 721.1 Danilo 723.4 354.0 Office Visit 04/12/2014 8:45a [facility] Scar Diop, 31019 721.1 Services Of Audra Carrasco 723.4 Office Visit 02/03/2014 2:00p [facility] Jaguar Neil, 91774 721.1 Of Audra Carrasco V45.89 Office Visit 10/22/2013 2:24p [facility], Fabianmicki Mckee, 98833 788.20 Hospitalists Danilo 560.32 401.9 Office Visit 10/12/2013 8:30a [facility] Scar Diop, 55112 721.1 Services Of Audra M.Marlin Office Visit 09/23/2013 1:40p [facility] Jaguar Neil, 40568 721.1 Of Audra M.DLacho Office Visit 09/06/2013 2:20p [facility] Jagu[place] Neil, 54101 721.1 Of Audra M.DLacho Office Visit 08/12/2013 3:45p [facility] Scar Diop, 11902 723.4 Services Of Audra Carrasco 721.1 Office Visit 07/20/2013 9:00a [facility] Scar Diop, 78026 723.4 Services Of Audra Carrasco 354.0 443.0 Office Visit 11/17/2011 9:15a [facility] Yeni Yoder, 01356 354.0 [facility] M.D. Office Visit 10/27/2011 8:15a [facility] Yeni Yoder, 40824 354.0 [facility] M.D. Office Visit 09/09/2011 8:15a [facility] Yeni Yoder 47383 354.0 [facility] M.D. Office Visit 07/14/2011 9:00a [facility] Yeni Yoder 31469 354.0 Of [facility] M.D. Office Visit 06/17/2011 8:00a [facility] Hema Petersen M.D. 01805 840.4 Of [facility] Office Visit 02/11/2011 8:00a [facility] Yeni Yoder 86492 354.0 Of [facility] M.D. Office Visit 12/05/2010 9:30a [facility] Hema Petersen M.D. 74535 716.91 Of [facility] Office Visit 08/06/2010 9:15a [facility] Yeni Yoder, 78657 354.0 Of [facility] M.DLacho Plan of Care Future Appointment(s):02/02/2018 1:00 pm - Alexandr Liang PA-C at [facility]02/02/2018 1:00 pm - ONIEL Foreman at [facility]02/02/2018 1:00 pm - Huyen Canada M.D. at [facility]02/17/2018 10:00 am - Huyen Canada M.D. at [facility]01/20/2018 9:00 am - Huyen Canada M.D. at [facility]01/11/2018 - Freddie Alegria DO FACCZ01.810 Encounter for preprocedural cardiovascular examinationFollow up:f/u 1 year (cancel any other f /u plans)
[2018-02-02] MEDS ORDERED: ceFAZolin 2 GM PREMIX (*) 2 GM/50 ML BAG IVPB ONE (08:56)
[2018-02-02] MEDS ORDERED: Midazolam* 1 MG/ML 2 ML VIAL (2 MG) ONE (08:57)
[2018-02-02] MEDS ORDERED: fentaNYL* 50 MCG/ML 2 ML VIAL (100 MCG VIAL) ONE ×2 (08:57→14:22)
[2018-02-02] MEDS ORDERED: ROPIVACAINE 5 MG/ML 30 ML BTL (0.5%) ONE (09:42)
[2018-02-02] MEDS ORDERED: Rocuronium* 10 MG/ML VIAL ONE (09:50)
[2018-02-02] MEDS ORDERED: Naloxone* 0.4 MG/ML 1 ML VIAL IV PRN (10:19)
[2018-02-02] MEDS ORDERED: Acetaminophen TAB* 325 MG PO PRN (10:19)
[2018-02-02] MEDS ORDERED: Ondansetron INJ* 2 MG/ML VIAL IV PRN ×2 (10:19→14:27)
[2018-02-02] MEDS ORDERED: HYDROcodone/ACETAMIN 5-325 MG* 1 TAB PO PRN (10:19)
[2018-02-02] MEDS ORDERED: PROCHLORPERAZINE INJ 5 MG/ML 2 ML VIAL IV PRN (10:19)
[2018-02-02] MEDS ORDERED: DiMENhydriNATE IV* 50 MG/ML VIAL IV PUSH PRN (10:19)
[2018-02-02] MEDS ORDERED: Morphine INJ* 2 MG/ML 1 ML SYRINGE (TWO MG - NEW SYRINGE VERSION) IV PRN (10:19)
[2018-02-02] MEDS ORDERED: Tranexamic Acid 1,000 MG/10 ML 1,000 MG in NS 0.9% 100 ML* 100 ML IV ONE (11:00)
[2018-02-02] MEDS ORDERED: Morphine VIAL* 10 MG/ML 1 ML VIAL ONE (11:51)
[2018-02-02] MEDS ORDERED: Propofol* 10 MG/ML 20 ML BTL IV PUSH ONE (12:26)
[2018-02-02] MEDS ORDERED: Lidocaine 2% PF * 5 ML VIAL ONE (12:27)
[2018-02-02] MEDS ORDERED: Ondansetron INJ* 2 MG/ML VIAL ONE (13:38)
[2018-02-02] MEDS ORDERED: EPHEDrine (Pressors)* 50 MG/ML VIAL ONE (13:39)
[2018-02-02] MEDS ORDERED: Magnesium Hydroxide LIQ* 30 ML UDC PO PRN (14:16)
[2018-02-02] MEDS: fentaNYL* 50 MCG/ML 2 ML VIAL (100 MCG VIAL) IV PRN ×3 (14:24→14:56)
[2018-02-02] MEDS ORDERED: Bisacodyl SUPP* 10 MG SUPP PR PRN (14:27)
[2018-02-02] MEDS ORDERED: diPHENhydraMINE IV* 50 MG/ML 1 ml VIAL (BENADRYL) IV PRN (14:27)
[2018-02-02] MEDS ORDERED: Cyclobenzaprine TAB* 10 MG PO PRN (14:27)
[2018-02-02] MEDS ORDERED: oxyCODONE/Acetamin 5/325 MG* TAB PO PRN ×2 (14:27)
[2018-02-02] MEDS ORDERED: hydrALAZINE IV* 20 MG/ML VIAL IV SLOW PU PRN (14:46)
[2018-02-02] MEDS ORDERED: HYDROcodone/ACETAMIN 5-325 MG* 1 TAB ONE (15:05)
--- NOTE | 2018-02-02 15:08 | RAD ---
HISTORY: S/P RTKA COMPARISONS: September 15, 2017 VIEWS: 2 , Frontal and lateral views of the right knee FINDINGS: BONE DENSITY: Normal. BONES: The patient is status post right knee arthroplasty. There is no hardware failure or osteolysis. JOINTS: The patient is status post right knee arthroplasty. ALIGNMENT: There is no dislocation. SOFT TISSUES: Unremarkable. OTHER FINDINGS: None. IMPRESSION: STATUS POST RIGHT KNEE ARTHROPLASTY
--- NOTE | 2018-02-02 16:30 | PN ---
Progress Note - Progress Note Date of Service: 02/02/18 Note: patient resting in bed with moderate knee pain; able to dorsi flex/plantar flex , 2+ DP pulse and intact sensation; dressing c/d/i
[2018-02-02] MEDS ORDERED: oxyCODONE TAB* 5 MG TAB ONE (16:32)
[2018-02-02] MEDS: Acetaminophen TAB* 325 MG PO SCH (17:18)
[2018-02-02] MEDS: Tamsulosin CAP* 0.4 MG PO SCH (17:19)
[2018-02-02] MEDS: Morphine INJ* 2 MG/ML 1 ML SYRINGE (TWO MG - NEW SYRINGE VERSION) IV PRN (17:23)
--- NOTE | 2018-02-02 18:12 | CONS ---
CC: Dr. Alvarenga; Dr. Canada * CONSULTATION REPORT: DATE OF CONSULT: 02/02/18 PRIMARY CARE PROVIDER: Dr. Alvarenga. ATTENDING PHYSICIAN WHILE IN HOSPITAL: Manuel Siu MD (report dictated by Vinnie Lindsey NP). REQUESTING PHYSICIAN IN CONSULT: Dr. Canada. REASON FOR MEDICAL CONSULTATION: Evaluation and medical management of comorbid medical conditions. HISTORY OF PRESENT ILLNESS: I refer you to Dr. Canada's H and P for further details. In short, Mr. Garibay is a 77-year-old male patient. He has a history of PMR, hypertension, AFib. He has borderline diabetes. He has a history of BPH. He is presenting today to the [facility] today due to the fact that he has been having a significant amount of right knee pain. He has been failing conservative therapy and he elected to proceed with a right total knee, which he underwent today. He was evaluated in the postoperative setting in the PACU. He is denying having any chest pain or any shortness of breath. Denies having any abdominal pain. He says he is feeling tired. He says he is having a significant amount of pain in that right knee. He denies having any nausea, no vomiting, no abdominal discomfort, and he does not feel short of breath. Because of his medical complexity, we were asked to evaluate him in consult. PAST MEDICAL HISTORY: Significant for: 1. PMR. 2. Hypertension. 3. AFib. 4. BPH. 5. Borderline diabetes. 6. Giant cell arteritis. PAST SURGICAL HISTORY: He has had: 1. Cervical diskectomy. 2. Carpal tunnel. 3. Right eye cataract removal. 4. Right total knee done today. MEDICATIONS: Home meds according to the preop include: 1. Vitamin D 1000 mg p.o. daily. 2. Vitamin C 500 mg p.o. daily. 3. Flomax 0.4 mg p.o. q.a.m. 4. Betapace 80 mg p.o. b.i.d. 5. Milk thistle 300 mg p.o. q.a.m. 6. Metoprolol 25 mg p.o. b.i.d. 7. Melatonin 1.5 mg p.o. q.p.m. 8. Magnesium 1 tablet p.o. daily. 9. Probiotic 2 capsules p.o. daily. 10. Calcium 600 mg daily. 11. Budesonide 3 mg p.o. b.i.d. as needed. 12. Eliquis 2.5 mg p.o. b.i.d. ALLERGIES TO MEDICATIONS: Include SULFA. FAMILY HISTORY: Mother at the age of 87. Father had a history of liver disease. SOCIAL HISTORY: He does not smoke. He occasionally drinks alcohol. Surrogate decision maker is his . PHYSICAL EXAM: Vital Signs: Blood pressure 145/111, last blood pressure in the room was 171/90 with a pulse of 70; respirations 18; O2 sat 100% on 3 L; temperature 97.7. General: At this time, Mr. Garibay is a 77-year-old male patient. He is sitting in the PACU bed. He does not appear to be in any acute distress. He appears to be well nourished and well developed. HEENT: Head: Atraumatic and normocephalic. Eyes: EOMs intact. Sclerae anicteric and not pale. Throat: Oral mucosa appears to be moist. No oropharyngeal erythema. Neck was supple. Heart: Sounds S1, S2. He had a regular rate and rhythm. No murmurs, rubs, or gallops. Lungs: Clear to auscultation bilaterally. There were no wheezes, rales, or rhonchi. Abdomen was soft. It was flat, nontender. Bowel sounds were hypoactive. Extremities: Pulses were 2+ throughout. Distal CSM checks were intact to the right lower extremity. He is moving his upper extremities. Neurologically, he is awake, alert, and oriented x3. He had no gross focal deficits. Skin: Intact with exception he has an incision to the right knee, which is covered with Matty dressing, which is clean, dry, and intact. DIAGNOSTIC STUDIES/LAB DATA: Preop: WBC of 7.0, RBC of 4.44, hemoglobin of 14.0, hematocrit of 41, platelet count of 278. The INR was 1.04, PTT of 30.5. Sodium 133, potassium 4.5, chloride 99, bicarb 29, BUN 12, creatinine of 0.80, glucose 104. Urine preop was negative. He had a preop EKG, which showed a normal sinus rhythm with a rate of 71. No ST elevations or T-wave inversions were noted. Chest x-ray obtained today, which showed no active cardiopulmonary disease. Old medical records were reviewed. ASSESSMENT AND PLAN: Mr. Garibay is a 77-year-old male patient coming into the [facility] today for an elective right total knee replacement. We are asked to evaluate in consult. Recommendations at this point are: 1. Status post right total knee. I will defer the management to Dr. Canada and her team. 2. Polymyalgia rheumatica and history of giant cell arteritis. He just finished his prednisone. We will continue with his current medical regimen. 3. Hypertension. Continue meds as prescribed. His blood pressure in the PACU has been elevated. I have ordered p.r.n. hydralazine. He is in a significant amount of pain though. We will check for pain control first. If this does not help, there is hydralazine available. If we need to, we can also consider adding another agent. 4. Atrial fibrillation. Continue his Eliquis. Orthopedics is going to be starting that tomorrow in the morning. 5. Benign prostatic hypertrophy. Continue his meds as prescribed. 6. History of borderline diabetes. We will check his fasting blood sugar in the morning. 7. DVT prophylaxis: Defer to the primary team. 8. Code status: Full code. 9. Fluids, electrolytes and nutrition: I would recommend a heart-healthy diet. TIME SPENT: Time spent on the consult was 60 minutes, greater than half the time was spent [id number] with the patient obtaining my history and physical, other half time was spent going over the plan of care with the patient and implementing plan of care. I did discuss this with my attending, Dr. Siu, he is in agreement. VINNIE LINDSEY, HANDY [id number]/CPS #: [id number] TRINY
[2018-02-02] MEDS: Sotalol TAB* 80 MG PO SCH (20:03)
[2018-02-02] MEDS: Metoprolol Tartrate TAB* 25 MG PO SCH (20:03)
[2018-02-02] MEDS: Magnesium Hydroxide LIQ* 30 ML UDC PO SCH (20:04)
[2018-02-02] MEDS: ceFAZolin 1 GM ADVAN(*) 1 GM in NS 0.9% 50 ML* 50 ML IVPB SCH (20:04)
[2018-02-02] MEDS: Docusate CAP* 100 MG PO SCH (20:04)
[2018-02-03] MEDS: Acetaminophen TAB* 325 MG PO SCH ×6 (00:01→23:39)
[2018-02-03] MEDS: oxyCODONE TAB* 5 MG TAB PO PRN ×3 (00:01→15:17)
[2018-02-03] MEDS: Morphine INJ* 2 MG/ML 1 ML SYRINGE (TWO MG - NEW SYRINGE VERSION) IV PRN ×3 (01:16→04:03)
[2018-02-03] MEDS: ceFAZolin 1 GM ADVAN(*) 1 GM in NS 0.9% 50 ML* 50 ML IVPB SCH ×2 (03:23→12:26)
[2018-02-03] MEDS ORDERED: Morphine VIAL* 4 MG/ML VIAL (1 ml vial) IV ONE (06:20)
[2018-02-03 06:38] LABS: Hematocrit 34 % (42-52); Hemoglobin 11.8 g/dl (14.0-18.0); Mean Platelet Volume 5.6 um3 (7.4-10.4); Platelet Count 243 10^3/ul (150-450)
[2018-02-03 06:47] LABS: INR 1.06 (0.77-1.02)
[2018-02-03 07:05] LABS: EGFR Non-African American 99.2 (>60)
[2018-02-03] MEDS: Magnesium Hydroxide LIQ* 30 ML UDC PO SCH ×2 (08:21→21:10)
[2018-02-03] MEDS: Metoprolol Tartrate TAB* 25 MG PO SCH ×2 (08:21→21:05)
[2018-02-03] MEDS: Sotalol TAB* 80 MG PO SCH ×2 (08:21→21:05)
[2018-02-03] MEDS: Vitamin THERAPEUTIC TAB PO SCH (08:21)
[2018-02-03] MEDS: Docusate CAP* 100 MG PO SCH ×2 (08:21→21:05)
[2018-02-03] MEDS ORDERED: Apixaban* 5 MG TAB PO SCH (09:00)
--- NOTE | 2018-02-03 11:18 | OP ---
DATE OF OPERATION: 02/02/18 - ROOM #343 DATE OF : 38 ATTENDING SURGEON: Huyen Canada MD FRONT SIGHT ATTACHER: ONIEL Turner. Mr. Liang did help throughout the procedure with preparation of the leg, wound retraction, manipulation of the knee, and wound closure. ANESTHESIOLOGIST: Dr. Kelly. ANESTHESIA: General. PRE-OP DIAGNOSIS: Severe end-stage degenerative osteoarthritis of the right knee joint. POST-OP DIAGNOSIS: Severe end-stage degenerative osteoarthritis of the right knee joint. OPERATIVE PROCEDURE: Right total knee arthroplasty. TOURNIQUET TIME: 49 minutes. COMPLICATIONS: None. ESTIMATED BLOOD LOSS: 200 cc. SPECIMEN: Bone and cartilage from the right knee joint sent to pathology. HARDWARE USED: This is a cemented Franco and Nephew total knee arthroplasty hardware. Two packages of Simplex bone cement. For the femur, a size 7 right Legion posterior stabilized femoral component. For the tibia, a size 5 right Magnolia II tibial base plate. For the insert, a 9-mm posterior stabilized articular insert, size 5/6. For the patella, a 35-mm 3-peg all poly patella. BRIEF HISTORY/INDICATION: Mr. Garibay is a 77-year-old gentleman with years of increasingly severe right knee pain and deformity. He failed conservative treatment with the anti-inflammatories, physical therapy, and intraarticular injections. Due to continued pain and decreased quality of life, he elected to undergo right total knee arthroplasty. Informed consent was obtained from the patient. He understood the risks of surgery included, but were not limited to bleeding, infection, damage to nearby structures, continued pain, need for further surgery, intraoperative fracture, nerve palsy, hardware failure or loosening, knee stiffness, loss of motion, stroke, heart attack, blood clot, and . He wished to proceed. INTRAOPERATIVE FINDINGS: Intraoperatively, the patient was noted to have severe arthritis in all 3 compartments. He had significant wear of the anteromedial tibial plateau and a hypoplastic medial femoral condyle whether from use of wear or his normal anatomy. DESCRIPTION OF PROCEDURE: Mr. Garibay was identified in the preanesthesia unit. His right lower extremity was marked as the correct operative side. Informed consent was signed and placed in the chart. The patient was taken to the operating room and placed under general anesthesia. A Anand catheter was placed. Tourniquet was placed on the right thigh. Right lower extremity was prepped and draped in the usual sterile fashion. Preop time-out was made to correctly identify the patient, side, and site. Appropriate perioperative antibiotics were given within 1 hour of incision. Tourniquet was inflated and total tourniquet time for this procedure was 49 minutes. A midline incision was made with a 10-blade and carried down to the extensor mechanism. A new 10-blade was used to make a standard medial parapatellar arthrotomy. Patella was subluxed laterally. Electrocautery was used to subperiosteally elevate the soft tissue off the superomedial tibia to the mid sagittal plane. The knee was flexed up. The anterior horn of the lateral meniscus and ACL were sharply released. A drill was used to enter the distal femur. Intramedullary distal femoral cutting guide was pinned on the distal femur. Oscillating saw was used to make the appropriate distal femoral cut. Next, the external rotation guide was pinned on the distal femur. Distal femur was sized to a size 7. Size 7 multi-cutting jig was pinned on the distal femur. Oscillating saw was used to make the 4 chamfer cuts. The PCL was completely released and the tibia was subluxed anteriorly. Extramedullary tibial cutting guide was pinned on the proximal tibia. Oscillating saw was used to make the proximal tibial cut perpendicular to the mechanical axis of the tibia. The bone was carefully removed. The knee was brought out into full extension. Spacer block had good fit. There was medial and lateral ligamentous balancing. Overall alignment was satisfactory. Flexion and extension gaps were well balanced. The knee was flexed up. Lamina golf club head former was placed both medially and laterally. Any remaining meniscus was carefully removed using electrocautery. Posterior osteophytes were removed using a curved osteotome. Tibial tray and drop kriss were placed and once again confirmed a satisfactory tibial cut. A size 7 right femoral trial was impacted onto the distal femur and had excellent fit. The box for the posterior stabilized implant was prepared using a reamer and box cut osteotome. A size 5 tibial tray trial with an 9-mm insert trial was placed and the knee was taken through a range of motion. The knee had full extension to 130 degrees of flexion with satisfactory patellofemoral tracking. The patella was everted. A 9 mm of patellar bone and cartilage was carefully removed using an oscillating saw. Patella was sized to a size 35. Three peg holes were drilled through the size 35 guide. A 35 trial patella was placed and the knee was taken through a range of motion. There was satisfactory patellofemoral tracking. All trials were removed. The tibia was subluxed anteriorly and sized to a size 5. Proximal tibia was prepared using a size 5 keel punch. All bony cut surfaces were copiously irrigated with sterile saline and dried. Final implants were cemented into place starting with the tibia followed by the femur and last the patella. A 9- mm insert trial was placed while the knee was brought into full extension. The tourniquet was turned down. Electrocautery was used to obtain meticulous hemostasis. The knee was irrigated copiously with sterile saline. Once the cement had fully cured, the insert trial was removed. Any excess cement was removed from around the capsule and hardware. Final insert chosen was a 9-mm posterior stabilized articular insert size 5/6. This was locked into position on the tibial tray. The knee was once again copiously irrigated with sterile saline. The extensor mechanism was closed using interrupted #1 Vicryl. The rest of the incision was closed in a layered fashion using 0 and 2-0 Vicryl. The skin was closed using running 3-0 nylon suture. Sterile Xeroform, 4 x 4s, and Webril were used to cover the incision. Matty wrap and cold pack were placed over this. The patient's anesthesia was reversed without difficulty. He was taken to the PACU in stable condition. Intended weightbearing will be weightbearing as tolerated. Intended DVT prophylaxis will be Coumadin with a Lovenox bridge. [id number]/[facility] #: [id number] TRINY
--- NOTE | 2018-02-03 13:46 | PN ---
Progress Note - Progress Note Date of Service: 02/03/18 SOAP: Subjective: []Patient seen and examined at bedside. He is feeling well though reports mild confusion. He denies chest pain, shortness of breath, dizziness, nausea. Knee pain is well controlled. Objective: [] General: Well appearing, NAD. Alert and oriented to person, place and time Right Lower Extremity: Right knee dressing CDI, no surrounding erythema. Sensation intact to light touch distally. DF/ PF intact. DP 2+ BL Calves supple and nontender without erythema, edema or palpable cords Assessment: []POD 1 s/p right total knee arthroplasty Plan: []WBAT PT/OT Recheck sodium in the morning. lovenox, coumadin 8 mg Vital Signs Temp 97.9 F 02/03/18 11:59 Pulse 66 02/03/18 11:59 Resp 16 02/03/18 11:59 BP 100/57 02/03/18 11:59 Pulse Ox 90 02/03/18 11:59 Intake & Output 02/02/18 02/03/18 02/03/18 18:59 06:59 18:59 Intake Total 2430 1580 360 Output Total 300 550 0 Balance 2130 1030 360 Weight 146 lb 6.4 oz Intake: IV Fluids 1950 980 1GM TRANEXAMIC ACID 100 LR 980 NS 50ML, Cefazolin 2G 50 or 1800 Oral 480 600 360 Output: Anand 300 550 0 Other: Estimated Blood Loss 150 Comment Laboratory Last Values Hgb 11.8 g/dl (14.0-18.0) L 02/03/18 06:14 Hct 34 % (42-52) L 02/03/18 06:14 Plt Count 243 10^3/ul (150-450) 02/03/18 06:14 MPV 5.6 um3 (7.4-10.4) L 02/03/18 06:14 INR (Anticoag Therapy) 1.06 (0.77-1.02) H 02/03/18 06:14 Sodium 128 mmol/L (135-145) L 02/03/18 06:14 Potassium 3.9 mmol/L (3.5-5.0) 02/03/18 06:14 Chloride 96 mmol/L (101-111) L 02/03/18 06:14 Carbon Dioxide 29 mmol/L (22-32) 02/03/18 06:14 Anion Gap 3 mmol/L (2-11) 02/03/18 06:14 BUN 9 mg/dL (6-24) 02/03/18 06:14 Creatinine 0.76 mg/dL (0.67-1.17) 02/03/18 06:14 Est GFR ( Amer) 120.0 (>60) 02/03/18 06:14 Est GFR (Non-Af Amer) 99.2 (>60) 02/03/18 06:14 BUN/Creatinine Ratio 11.8 (8-20) 02/03/18 06:14 Glucose 151 mg/dL (70-100) H 02/03/18 06:14 Calcium 8.1 mg/dL (8.6-10.3) L 02/03/18 06:14
[2018-02-03] MEDS ORDERED: NS 0.9% 500 ML* 500 ML IV ONE (16:54)
[2018-02-03] MEDS: Tamsulosin CAP* 0.4 MG PO SCH (17:11)
--- NOTE | 2018-02-03 17:20 | PN ---
Subjective Date of Service: 02/03/18 Interval History: Patient reports his knee is causing some pain but states currently he feels comfortable. He reports the kimble catheter was removed this morning and hasn't urinated since this morning. He denies any bladder/lower abdominal discomfort. Reports "okay appetite". Denies nausea/vomiting. Objective Active Medications: Acetaminophen (Tylenol Tab*) 975 mg PO Q8H [facility] Last Admin: 02/03/18 14:22 Dose: Not Given Apixaban (Eliquis) 2.5 mg PO BID [facility] Bisacodyl (Dulcolax Supp*) 10 mg [place] DAILY PRN PRN Reason: constipation Cyclobenzaprine HCl (Flexeril Tab*) 5 mg PO TID PRN PRN Reason: SPASMS Diphenhydramine HCl (Benadryl Iv*) 25 mg IV Q6H PRN PRN Reason: itching Docusate Sodium (Colace Cap*) 100 mg PO BID [facility] Last Admin: 02/03/18 08:21 Dose: 100 mg Hydralazine HCl (Apresoline Iv*) 5 mg IV SLOW PU Q6H PRN PRN Reason: BLOOD PRESSURE Sodium Chloride (Ns 0.9% 500 Ml*) 500 mls @ 0 mls/hr IV ONCE ONE Stop: 02/03/18 16:55 Last Admin: 02/03/18 17:06 Dose: 500 mls/hr Lactulose (Lactulose*) 30 ml PO Q6H PRN PRN Reason: constipation Magnesium Hydroxide (Milk Of Magnesia Liq*) 30 ml PO BID [facility] Last Admin: 02/03/18 08:21 Dose: 30 ml Magnesium Hydroxide (Milk Of Magnesia Liq*) 30 ml PO Q6H PRN PRN Reason: constipation Metoprolol Tartrate (Lopressor Tab*) 25 mg PO BID [facility] Last Admin: 02/03/18 08:21 Dose: 25 mg Morphine Sulfate (Morphine Inj ((Syringe))*) 4 mg IV Q2H PRN PRN Reason: PAIN Last Admin: 02/03/18 04:03 Dose: 4 mg Multivitamins (Theragran Tab*) 1 tab PO DAILY [facility] Last Admin: 02/03/18 08:21 Dose: 1 tab Ondansetron HCl (Zofran Inj*) 4 mg IV Q6H PRN PRN Reason: nausea Oxycodone HCl (Roxycodone Tab*) 10 mg PO Q4H PRN PRN Reason: PAIN - SEVERE Last Admin: 02/03/18 15:17 Dose: 10 mg Oxycodone/Acetaminophen (Percocet 5/325 Tab*) 1 tab PO Q4H PRN PRN Reason: PAIN Oxycodone/Acetaminophen (Percocet 5/325 Tab*) 2 tab PO Q4H PRN PRN Reason: PAIN Last Admin: 02/03/18 01:25 Dose: 2 tab Sotalol HCl (Betapace Tab*) 80 mg PO BID [facility] Last Admin: 02/03/18 08:21 Dose: 80 mg Tamsulosin HCl (Flomax Cap*) 0.4 mg PO QPM [facility] Last Admin: 02/03/18 17:11 Dose: 0.4 mg Vital Signs - 8 hr 02/03/18 02/03/18 02/03/18 11:46 11:59 15:17 Temperature 97.9 F Pulse Rate 71 66 Respiratory 16 18 Rate Blood Pressure 106/56 100/57 (mmHg) O2 Sat by Pulse 95 90 Oximetry 02/03/18 02/03/18 16:00 16:01 Temperature 98.0 F Pulse Rate 71 Respiratory 18 Rate Blood Pressure 123/58 (mmHg) O2 Sat by Pulse 95 95 Oximetry Oxygen Devices in Use Now: None Appearance: 77 yo male sitting up in a chair in NAD A+Ox3 visiting with family Eyes: No Scleral Icterus, PERRLA Ears/Nose/Mouth/Throat: NL Teeth, Lips, Gums, Mucous Membranes Moist Respiratory: Symmetrical Chest Expansion and Respiratory Effort, Clear to Auscultation Cardiovascular: NL Sounds; No Murmurs; No JVD, RRR, No Edema Abdominal: NL Sounds; No Tenderness; No Distention Extremities: No Edema, No Clubbing, Cyanosis Skin: No Rash or Ulcers, No Nodules or Sclerosis Neurological: Alert and Oriented x 3, NL Sensation, NL Gait, NL Muscle Strength and Tone Lines/Tubes/Other Access: Clean, Dry and Intact Peripheral IV Nutrition: Taking PO's Result Diagrams: 02/03/18 06:14 02/03/18 06:14 Assess/Plan/Problems-Billing Assessment: 77 yo male patient with a PMH PMR, HTN, afib, BPH, borderline DM, giant cell arteritis who underwent and elective right total knee replacement with Dr. Canada. Hospital Medicine consulting for co-medical management - Patient Problems (1) Status post total right knee replacement Comment: - POD #1 Dispo per Ortho - pain management, PT/OT, Bowel regimen - overall appears to be doing well (2) Afib Comment: Continue Metoprolol and Sotalol - Continue Eliquis (3) HTN (hypertension) Comment: stable. continue home medications (4) DVT prophylaxis Comment: eliquis (5) Full code status Status and Disposition: Dispo per Ortho
[2018-02-03] MEDS: Apixaban* 2.5 MG TAB PO SCH (21:05)
[2018-02-04 06:19] LABS: Hematocrit 32 % (42-52); Mean Platelet Volume 5.8 um3 (7.4-10.4); Platelet Count 245 10^3/ul (150-450)
[2018-02-04 06:23] LABS: INR 1.29 (0.77-1.02)
[2018-02-04] MEDS: Magnesium Hydroxide LIQ* 30 ML UDC PO SCH ×2 (07:21→20:57)
[2018-02-04] MEDS: oxyCODONE TAB* 5 MG TAB PO PRN (07:42)
[2018-02-04] MEDS: Metoprolol Tartrate TAB* 25 MG PO SCH ×2 (07:42→20:56)
[2018-02-04] MEDS: Apixaban* 2.5 MG TAB PO SCH ×2 (07:42→20:56)
[2018-02-04] MEDS: Docusate CAP* 100 MG PO SCH ×2 (07:42→20:57)
[2018-02-04] MEDS: Acetaminophen TAB* 325 MG PO SCH ×2 (07:42→15:41)
[2018-02-04] MEDS: Sotalol TAB* 80 MG PO SCH ×2 (07:42→20:56)
[2018-02-04] MEDS: Vitamin THERAPEUTIC TAB PO SCH (07:42)
[2018-02-04 11:42] LABS: Urine Appearance Cloudy; Urine Blood Negative (Negative); Urine Color Amber; Urine Ketones 1+ (Negative); Urine Protein 1+(30 mg/dL) (Negative); Urine Red Blood Cell 2+(6-10/hpf) (Absent); Urine Specific Gravity 1.023 (1.010-1.030); Urine Urobilinogen Negative (Negative); Urine White Blood Cell Trace(0-5/hpf) (Absent)
--- NOTE | 2018-02-04 13:13 | PN ---
Progress Note - Progress Note Date of Service: 02/04/18 SOAP: Subjective: [] Patient seen at bedside. He feels well with no CP, SOB, dizziness, nausea. Confusion is improved from yesterday though still somewhat confused today. Objective: []General: Well appearing, NAD. Alert and carrying on appropriate conversation Right Lower Extremity: Right knee dressing changed by Dr Canada this morning, dressing CDI, no surrounding erythema. Sensation intact to light touch distally. DF/ PF intact. DP 2+ BL Calves supple and nontender without erythema, edema or palpable cords Assessment: []POD 2 s/p right total knee arthroplasty Plan: []WBAT PT/OT Recheck sodium this afternoon. Fluid restrict to 1200 ml daily lovenox, coumadin 6 mg Slow to progress with PT, will likely stay until tomorrow Vital Signs Temp 97.4 F 02/04/18 11:46 Pulse 67 02/04/18 11:46 Resp 16 02/04/18 11:46 BP 130/62 02/04/18 11:46 Pulse Ox 98 02/04/18 11:46 Intake & Output 02/03/18 02/04/18 02/04/18 18:59 06:59 18:59 Intake Total 1679 500 480 Output Total 0 450 250 Balance 1679 50 230 Intake: IVPB 1199 LR 1039 abx 160 Oral 480 500 480 Output: Urine 150 250 Anand 0 Straight Cath 300 Other: Estimated Void Medium Date of Last Bowel 02/04/18 Movement # Bowel Movements 3 1 Estimated Stool Amount Medium Medium # Voids 1 Laboratory Last Values Hgb 11.0 g/dl (14.0-18.0) L 02/04/18 05:54 Hct 32 % (42-52) L 02/04/18 05:54 Plt Count 245 10^3/ul (150-450) 02/04/18 05:54 MPV 5.8 um3 (7.4-10.4) L 02/04/18 05:54 INR (Anticoag Therapy) 1.29 (0.77-1.02) H 02/04/18 05:54 Sodium 124 mmol/L (135-145) L 02/04/18 05:54 Potassium 3.8 mmol/L (3.5-5.0) 02/04/18 05:54 Chloride 92 mmol/L (101-111) L 02/04/18 05:54 Carbon Dioxide 27 mmol/L (22-32) 02/04/18 05:54 Anion Gap 5 mmol/L (2-11) 02/04/18 05:54 BUN 9 mg/dL (6-24) 02/04/18 05:54 Creatinine 0.64 mg/dL (0.67-1.17) L 02/04/18 05:54 Est GFR ( Amer) 146.4 (>60) 02/04/18 05:54 Est GFR (Non-Af Amer) 121.0 (>60) 02/04/18 05:54 BUN/Creatinine Ratio 14.1 (8-20) 02/04/18 05:54 Glucose 131 mg/dL (70-100) H 02/04/18 05:54 Serum Osmolality 275 mOsm/kg (275-295) 02/04/18 05:54 Calcium 7.7 mg/dL (8.6-10.3) L 02/04/18 05:54 Urine Color K[place] 02/04/18 11:20 Urine Appearance Cloudy 02/04/18 11:20 Urine pH 5.0 (5-9) 02/04/18 11:20 Ur Specific [place] 1.023 (1.010-1.030) 02/04/18 11:20 Urine Protein 1+(30 mg/dl) (Negative) A 02/04/18 11:20 Urine Ketones 1+ (Negative) A 02/04/18 11:20 Urine Blood Negative (Negative) 02/04/18 11:20 Urine Nitrate Negative (Negative) 02/04/18 11:20 Urine Bilirubin Negative (Negative) 02/04/18 11:20 Urine Urobilinogen Negative (Negative) 02/04/18 11:20 Ur Leukocyte Esterase Negative (Negative) 02/04/18 11:20 Urine WBC (Auto) Trace(0-5/hpf) (Absent) 02/04/18 11:20 Urine RBC (Auto) 2+(6-10/hpf) (Absent) A 02/04/18 11:20 Ur Squamous Epith Cells Present (Absent) A 02/04/18 11:20 Urine Bacteria Absent (Absent) 02/04/18 11:20 Urine Osmolality 622 mOsm/kg (150-1150) 02/04/18 11:20 Ur Random Sodium < 18 mmol/L 02/04/18 11:20 Urine Glucose Negative (Negative) 02/04/18 11:20 Urine Ascorbic Acid * (Negative) A 02/04/18 11:20
[2018-02-04] MEDS: Tamsulosin CAP* 0.4 MG PO SCH (17:25)
--- NOTE | 2018-02-04 18:07 | PN ---
Subjective Date of Service: 02/04/18 Interval History: Patient reports his knee pain "is painful but manageable". Per he seems agitated today and a little confused. Pt denies [place] or vison changes. He denies feeling confused. Currently appears to be appropriate on exam. Objective Active Medications: Acetaminophen (Tylenol Tab*) 975 mg PO Q8H [facility] Last Admin: 02/04/18 15:41 Dose: 650 mg Apixaban (Eliquis) 2.5 mg PO BID [facility] Last Admin: 02/04/18 07:42 Dose: 2.5 mg Bisacodyl (Dulcolax Supp*) 10 mg [place] DAILY PRN PRN Reason: constipation Cyclobenzaprine HCl (Flexeril Tab*) 5 mg PO TID PRN PRN Reason: SPASMS Diphenhydramine HCl (Benadryl Iv*) 25 mg IV Q6H PRN PRN Reason: itching Docusate Sodium (Colace Cap*) 100 mg PO BID [facility] Last Admin: 02/04/18 07:42 Dose: 100 mg Hydralazine HCl (Apresoline Iv*) 5 mg IV SLOW PU Q6H PRN PRN Reason: BLOOD PRESSURE Lactulose (Lactulose*) 30 ml PO Q6H PRN PRN Reason: constipation Magnesium Hydroxide (Milk Of Magnesia Liq*) 30 ml PO BID [facility] Last Admin: 02/04/18 07:21 Dose: Not Given Magnesium Hydroxide (Milk Of Magnesia Liq*) 30 ml PO Q6H PRN PRN Reason: constipation Metoprolol Tartrate (Lopressor Tab*) 25 mg PO BID [facility] Last Admin: 02/04/18 07:42 Dose: 25 mg Morphine Sulfate (Morphine Inj ((Syringe))*) 4 mg IV Q2H PRN PRN Reason: PAIN Last Admin: 02/03/18 04:03 Dose: 4 mg Multivitamins (Theragran Tab*) 1 tab PO DAILY [facility] Last Admin: 02/04/18 07:42 Dose: 1 tab Ondansetron HCl (Zofran Inj*) 4 mg IV Q6H PRN PRN Reason: nausea Oxycodone HCl (Roxycodone Tab*) 10 mg PO Q4H PRN PRN Reason: PAIN - SEVERE Last Admin: 02/04/18 07:42 Dose: 10 mg Oxycodone/Acetaminophen (Percocet 5/325 Tab*) 1 tab PO Q4H PRN PRN Reason: PAIN Last Admin: 02/04/18 15:43 Dose: 1 tab Oxycodone/Acetaminophen (Percocet 5/325 Tab*) 2 tab PO Q4H PRN PRN Reason: PAIN Last Admin: 02/03/18 01:25 Dose: 2 tab Sotalol HCl (Betapace Tab*) 80 mg PO BID [facility] Last Admin: 02/04/18 07:42 Dose: 80 mg Tamsulosin HCl (Flomax Cap*) 0.4 mg PO QPM [facility] Last Admin: 02/04/18 17:25 Dose: 0.4 mg Vital Signs - 8 hr 02/04/18 02/04/18 02/04/18 11:46 15:43 15:50 Temperature 97.4 F 98.2 F Pulse Rate 67 77 Respiratory 16 18 21 Rate Blood Pressure 130/62 151/74 (mmHg) O2 Sat by Pulse 98 98 Oximetry 02/04/18 16:00 Temperature Pulse Rate Respiratory Rate Blood Pressure (mmHg) O2 Sat by Pulse 98 Oximetry Oxygen Devices in Use Now: None Result Diagrams: 02/04/18 05:54 02/04/18 15:16 Assess/Plan/Problems-Billing Assessment: 77 yo male patient with a PMH PMR, HTN, afib, BPH, borderline DM, giant cell arteritis who underwent and elective right total knee replacement with Dr. Canada. Hospital Medicine consulting for co-medical management - Patient Problems (1) Status post total right knee replacement Comment: - POD #2 Dispo per Ortho - pain management, PT/OT, Bowel regimen - overall appears to be doing well (2) Hyponatremia Comment: Suspect SIADH. 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 Monzon and recommends continued fluid restriction and recheck in am. Asymptomatic Continue fluid Restriction Recheck in am (3) Afib Comment: Continue Metoprolol and Sotalol - Continue Eliquis (4) HTN (hypertension) Comment: stable. continue home medications (5) DVT prophylaxis Comment: eliquis (6) Full code status Status and Disposition: Dispo per Ortho
[2018-02-05] MEDS: Acetaminophen TAB* 325 MG PO SCH ×4 (00:23→23:44)
[2018-02-05 06:13] LABS: ABS Basophils 0 10^3/ul (0-0.2); ABS Eosinophils 0 10^3/ul (0-0.6); ABS Monocytes 1.1 10^3/ul (0-0.8); ABS Neutrophils 9.5 10^3/ul (1.5-7.7); ABS Nucleated RBC 0 10^3/ul; Eosinophil % 0.1 % (0-6); Hematocrit 31 % (42-52); Hemoglobin 10.6 g/dl (14.0-18.0); Lymphocyte % 8.7 % (25-47); Mean Corpuscular HGB Conc 35 g/dl (31-36); Mean Corpuscular Hemoglobin 31 pg (27-31); Mean Corpuscular Volume 91 fL (80-94); Mean Platelet Volume 5.8 um3 (7.4-10.4); Nucleated Red Blood Cells % 0; Platelet Count 261 10^3/ul (150-450); Red Blood Count 3.36 10^6/ul (4.00-5.40); Red Cell Distribution Width 13 % (10.5-15); White Blood Count 11.6 10^3/ul (3.5-10.8)
[2018-02-05 06:17] LABS: INR 1.21 (0.77-1.02)
[2018-02-05 06:28] LABS: EGFR Non-African American 132.9 (>60)
[2018-02-05] MEDS: Magnesium Hydroxide LIQ* 30 ML UDC PO SCH ×2 (07:57→21:21)
[2018-02-05] MEDS: Docusate CAP* 100 MG PO SCH ×2 (07:58→21:21)
[2018-02-05] MEDS ORDERED: Metoprolol Tartrate TAB* 25 MG PO ONE (08:00)
[2018-02-05] MEDS ORDERED: Metoprolol Tartrate TAB* 25 MG ONE (08:04)
[2018-02-05] MEDS: Vitamin THERAPEUTIC TAB PO SCH (08:05)
[2018-02-05] MEDS: Metoprolol Tartrate TAB* 25 MG PO SCH ×2 (08:05→21:32)
[2018-02-05] MEDS: Apixaban* 2.5 MG TAB PO SCH ×2 (08:06→21:32)
[2018-02-05] MEDS: Sotalol TAB* 80 MG PO SCH ×2 (08:06→21:32)
--- NOTE | 2018-02-05 09:23 | PN ---
Subjective Date of Service: 02/05/18 Interval History: Mr. Garibay reports feeling well this morning. There was concern by nursing that he was in afib with a rate in the 110s. He reports feeling slightly SOB, but otherwise well. Denies CP or palpitations, but states he can feel his heart racing when he puts his hand on his chest. He denies pain in his L knee, but states that he has not gotten out of bed to ambulate since surgery. Daughter is at bedside. She reports that yesterday he had an episode of what is described as muscle spasms in his R upper chest. To his knowledge, he has not experienced this before, and there have been no further episodes since yesterday. 1500: Per nursing, pt is somewhat SOB on exertion. Converted back to NSR midday and now back in aifb - rate controlled. Family History: Unchanged from Admission Social History: Unchanged from Admission Past Medical History: Unchanged from Admission Objective Active Medications: Acetaminophen (Tylenol Tab*) 975 mg PO Q8H [facility] Apixaban (Eliquis) 2.5 mg PO BID [facility] Bisacodyl (Dulcolax Supp*) 10 mg [place] DAILY PRN PRN Reason: constipation Cyclobenzaprine HCl (Flexeril Tab*) 5 mg PO TID PRN PRN Reason: SPASMS Diphenhydramine HCl (Benadryl Iv*) 25 mg IV Q6H PRN PRN Reason: itching Docusate Sodium (Colace Cap*) 100 mg PO BID [facility] Hydralazine HCl (Apresoline Iv*) 5 mg IV SLOW PU Q6H PRN PRN Reason: BLOOD PRESSURE Lactulose (Lactulose*) 30 ml PO Q6H PRN PRN Reason: constipation Magnesium Hydroxide (Milk Of Magnesia Liq*) 30 ml PO BID [facility] Magnesium Hydroxide (Milk Of Magnesia Liq*) 30 ml PO Q6H PRN PRN Reason: constipation Metoprolol Tartrate (Lopressor Tab*) 25 mg PO BID [facility] Morphine Sulfate (Morphine Inj ((Syringe))*) 4 mg IV Q2H PRN PRN Reason: PAIN Multivitamins (Theragran Tab*) 1 tab PO DAILY [facility] Ondansetron HCl (Zofran Inj*) 4 mg IV Q6H PRN PRN Reason: nausea Oxycodone HCl (Roxycodone Tab*) 10 mg PO Q4H PRN PRN Reason: PAIN - SEVERE Oxycodone/Acetaminophen (Percocet 5/325 Tab*) 1 tab PO Q4H PRN PRN Reason: PAIN Oxycodone/Acetaminophen (Percocet 5/325 Tab*) 2 tab PO Q4H PRN PRN Reason: PAIN Sotalol HCl (Betapace Tab*) 80 mg PO BID [facility] Tamsulosin HCl (Flomax Cap*) 0.4 mg PO QPM [facility] Vital Signs - 8 hr 02/05/18 04:34 Temperature 98.1 F Pulse Rate 116 Respiratory 16 Rate Blood Pressure 159/99 (mmHg) O2 Sat by Pulse 99 Oximetry Oxygen Devices in Use Now: None Appearance: Elderly gentleman laying in bed in NAD. Eyes: No Scleral Icterus, PERRLA Ears/Nose/Mouth/Throat: NL Teeth, Lips, Gums Neck: NL Appearance and Movements; NL JVP, Trachea Midline Respiratory: Symmetrical Chest Expansion and Respiratory Effort, Clear to Auscultation Cardiovascular: NL Sounds; No Murmurs; No JVD, No Edema, - - Irregular rhythm Abdominal: NL Sounds; No Tenderness; No Distention Extremities: No Edema Neurological: Alert and Oriented x 3 Lines/Tubes/Other Access: Clean, Dry and Intact Peripheral IV Nutrition: Taking PO's Result Diagrams: 02/05/18 05:53 02/05/18 05:53 Assess/Plan/Problems-Billing Assessment: 77 yo male patient with a PMH PMR, HTN, afib, BPH, borderline DM, giant cell arteritis who underwent and elective right total knee replacement with Dr. Canada. [facility] Medicine consulting for co-medical management. - Patient Problems (1) Status post total right knee replacement Current Visit: Yes Status: Acute Code(s): Z96.651 - PRESENCE OF RIGHT ARTIFICIAL KNEE JOINT SNOMED Code(s): 0143170717672 Comment: - POD #3 Dispo per Ortho - Pain management, PT/OT, Bowel regimen - Overall appears to be doing well (2) Afib Current Visit: Yes Status: Chronic Code(s): I48.91 - UNSPECIFIED ATRIAL FIBRILLATION SNOMED Code(s): 63279498 Comment: - Paroxysmal, rate now controlled - Additional one time dose of metoprolol - Continue metoprolol and Sotalol - Continue Eliquis (3) HTN (hypertension) Current Visit: Yes Status: Acute Code(s): I10 - ESSENTIAL (PRIMARY) HYPERTENSION SNOMED Code(s): 86813225 Comment: - Stable - Continue metoprolol and Sotalol (4) Hyponatremia Current Visit: Yes Status: Acute Code(s): E87.1 - HYPO-OSMOLALITY AND HYPONATREMIA SNOMED Code(s): 06710923 Comment: - Suspect SIADH: 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 Possible d/c to PMRU when stable.
--- NOTE | 2018-02-05 10:07 | RAD ---
Indication: Postop knee surgery Duplex Doppler sonography of the deep venous system of both lower extremities was performed. Bilaterally the common femoral veins, proximal greater saphenous veins, proximal deep femoral veins, femoral veins, popliteal veins, posterior tibial veins and peroneal veins appear patent and compressible. In the left medial knee there is a fluid collection measuring 6.7 x 1.3 x 2.0 cm. IMPRESSION: NO EVIDENCE OF DEEP VENOUS THROMBOSIS OF EITHER LOWER EXTREMITY IS PRESENT. Fluid collection in the left knee medially.
--- NOTE | 2018-02-05 11:47 | PN ---
Progress Note - Progress Note Date of Service: 02/05/18 SOAP: Subjective: [Pt seen this morning sitting up in chair. Pt states that he is doing well. Pain is mild and manageable. He denies any chest pain, SOB, dizziness, nausea or vomiting. He was able to progress further with PT this morning. Will see how PT goes this ] Objective: [General: A&Ox3, NAD MSK, RLE: Dressing is c/d/i. +df/pf. Sensation intact to light touch distally. 2 + PT pulse. ] Vital Signs Temp 98.1 F 02/05/18 04:34 Pulse 116 02/05/18 04:34 Resp 16 02/05/18 04:34 BP 159/99 02/05/18 04:34 Pulse Ox 99 02/05/18 04:34 Intake & Output 02/04/18 02/05/18 02/05/18 18:59 06:59 18:59 Intake Total 720 658 Output Total 250 100 Balance 470 558 Intake: Oral 720 658 Output: Urine 250 100 Other: Estimated Void Small Small Date of Last Bowel 02/04/18 Movement # Bowel Movements 1 Estimated Stool Amount Small # Voids 1 Assessment: [S/P RTKA] Plan: [Continue with PT today. He was able to walk this morning with minimal assistance. Will see if he continues to progress this afternoon Pt was in a-fib this morning, given metoprolol Possible DC home today vs DC to PMRU. The pt seems to be a good fit for PMRU and seems to be accepting of this should he not continue to progress with PT Xarelto 2.5 mg bid for anticoagulation NA continue to be low at this time ]
[2018-02-05] MEDS: Tamsulosin CAP* 0.4 MG PO SCH (18:08)
[2018-02-06 05:59] LABS: Hematocrit 28 % (42-52); Hemoglobin 9.5 g/dl (14.0-18.0); Mean Platelet Volume 6.2 um3 (7.4-10.4); Platelet Count 269 10^3/ul (150-450)
[2018-02-06 06:07] LABS: INR 1.2 (0.77-1.02)
[2018-02-06] MEDS: Acetaminophen TAB* 325 MG PO SCH ×2 (07:15→17:10)
--- NOTE | 2018-02-06 08:20 | PN ---
Progress Note - Progress Note Date of Service: 02/06/18 SOAP: Subjective: [Pt reports doing well. R knee pain managed with po meds. Denies CP, SOB, dizziness. Reports PT going well.] Objective: [A and O x 3. NAD. Seated in chair eating breakfast. Daughter at bedside. RLE: Dressing C/D/I. Gross distal motor and NV function intact. Calves soft, NT. Vital Signs: Temp Pulse Resp BP Pulse Ox 97.5 F 66 18 139/73 100 02/06/18 03:20 02/06/18 03:20 02/06/18 03:20 02/06/18 03:20 02/06/18 03:20 Laboratory Results - last 24 hr 02/05/18 02/06/18 02/06/18 05:53 05:26 05:26 Hgb 9.5 L Hct 28 L Plt Count 269 MPV 6.2 L INR (Anticoag Therapy) 1.20 H Sodium 124 L Potassium 4.1 Chloride 91 L Carbon Dioxide 26 Anion Gap 7 BUN 8 Creatinine 0.59 L Est GFR ( Amer) 160.8 Est GFR (Non-Af Amer) 132.9 BUN/Creatinine Ratio 13.6 Glucose 133 H Calcium 7.9 L Magnesium 1.8 L Total Bilirubin 0.80 Direct Bilirubin 0.20 H Indirect Bilirubin 0.6 AST 24 ALT 13 Alkaline Phosphatase 47 Total Protein 5.9 L Albumin 3.2 Globulin 2.7 Albumin/Globulin Ratio 1.2 ] Assessment: [77 yo male s/p R TKA POD #4] Plan: [Con't PT/OT Xarelto for DVT prophylaxis D/C home with services when medically stable (insurance did not authorize acute rehab stay)]
[2018-02-06] MEDS: Magnesium Hydroxide LIQ* 30 ML UDC PO SCH (08:46)
[2018-02-06] MEDS: Docusate CAP* 100 MG PO SCH (08:46)
[2018-02-06] MEDS: Apixaban* 2.5 MG TAB PO SCH (08:49)
[2018-02-06] MEDS: Metoprolol Tartrate TAB* 25 MG PO SCH (08:50)
[2018-02-06] MEDS: Vitamin THERAPEUTIC TAB PO SCH (08:51)
[2018-02-06] MEDS: Sotalol TAB* 80 MG PO SCH (08:51)
[2018-02-06 16:09] LABS: EGFR Non-African American 153.7 (>60)
[2018-02-06] MEDS ORDERED: Potassium Chlor TAB* 20 MEQ TAB.ER PO ONE (16:25)
[2018-02-06] MEDS ORDERED: Magnesium Oxide TAB* 400 MG PO ONE (16:25)
[2018-02-06 16:27] VITALS: BP 149/80
[2018-02-06] MEDS: Tamsulosin CAP* 0.4 MG PO SCH (17:09)
--- NOTE | 2018-02-06 18:32 | PN ---
Hospitalist Progress Note Date of Service: 02/06/18 . saw patient briefly before discharge. Sodium 122 -- down from 123 previously. But, clinically improving. PT gave favorable review of his ambulatory improvement. His AF converted to NSR late yesterday after additional dose of BB; has felt better since. On eliquis BID. On sotalol and BB. Advisable to see PCP Thursday or Thursday and can have labs checked (sodium) I repleted his potassium and magnesium before discharge, both were modestly low. Offered [facility] if he can't get in to see his PCP...but advised seeing PCP if he could... OK for discharge as per orthopedic team. gave return to ED instructions. .
--- NOTE | 2018-02-08 23:01 | DS ---
DISCHARGE SUMMARY: DATE OF ADMISSION: 02/02/18 DATE OF DISCHARGE: 02/06/18 PROVIDER: Huyen Canada MD ADMITTING DIAGNOSES: 1. Right knee osteoarthritis. 2. Polymyalgia rheumatica. 3. Hypertension. 4. Atrial fibrillation. 5. Benign prostatic hyperplasia. 6. History of hyponatremia. DISCHARGE DIAGNOSES: 1. Status post right total knee arthroplasty. 2. Polymyalgia rheumatica. 3. Hypertension. 4. Atrial fibrillation. 5. Benign prostatic hyperplasia. 6. History of hyponatremia. BRIEF HISTORY: Mr. Garibay is a 77-year-old male with severe degenerative osteoarthritis of his righ t knee. He failed conservative treatment measures and elected to undergo a right total knee arthropl asty on 02/02/[address] Canada. HOSPITAL COURSE: Mr. Garibay was admitted to [facility] on 02/02/18. He underwent an unco mplicated right total knee arthroplasty. Postoperatively, he recovered on the short stay surgical un it. His Anand catheter was removed on postoperative day 1 and he was able to urinate on his own. Po stoperative day 2, he was able to have a bowel movement. He advanced to regular diet without difficu lty and his pain was well controlled with Percocet. He was able to bear weight as tolerated on the r ight lower extremity and he advanced appropriately with physical therapy and occupational therapy. H is DVT prophylaxis was bridged with Lovenox and Coumadin until he reach therapeutic INR range. He wi ll plan on taking his regular Eliquis when he is at home after discharge. He was followed by Staci ordoñez during his hospital stay for hyponatremia and concerns with atrial fibrillation. Both were managed appropriately and the patient was medically stable upon discharge. He also had a Doppler ultrasound performed on postoperative day 3 and a DVT was ruled out. By postoperative day #4, he was orthopedic ally and medically stable for discharge home with services. PHYSICAL EXAMINATION: General: On examination, the patient is noted to be calm and cooperative, in no acute distress. He is alert and oriented x3. Vital signs on the day of discharge: Temperature 9 8.8% Fahrenheit, pulse rate 62, respiratory rate 18, O2 sat 100% on room air, blood pressure 148/77. Extremities: Examination of the right lower extremity demonstrates dressing overlying the right kne e, which is clean, dry, and intact. His calf is soft and nontender. Distally, he has +2 DP pulse an d gross motor and sensation are intact. DIAGNOSTIC STUDIES/LAB DATA: On the day of discharge, hemoglobin 9.5, hematocrit 28. INR 1.20. Postoperative radiographs of the right knee demonstrate a right total knee arthroplasty with satisfac tory prosthesis placement and no acute bony abnormalities. DISCHARGE MEDICATIONS: 1. Eliquis 2.5 mg daily. 2. Magnesium oxide 250 mg daily. 3. Milk thistle. 4. Vitamin D. 5. Vitamin C. 6. Melatonin. 7. Tamsulosin 0.4 mg twice a day. 8. Metoprolol 25 mg twice a day. 9. Sotalol 80 mg twice a day. 10. Probiotic calcium. 11. Budesonide 3 mg daily. 12. Percocet 5/325 one to two tabs p.o. q.4 to 6 hours p.r.n. pain. 13. Colace 100 mg p.o. t.i.d. p.r.n. constipation. CONDITION ON DISCHARGE: Stable. DISCHARGE INSTRUCTIONS: Mr. Garibay is a 77-year-old male, postoperative day #4, status post right t otal knee arthroplasty, which was uncomplicated. He is orthopedically and medically stable to be dis charged home with services. He has low sodium upon discharge at 121 and was given instruction to hav e this checked again on 02/09/18. He has restarted home medications. He will remain weight bearing as tolerated on the right lower extremity and have home physical therapy twice a day. He donell l take Percocet for pain control and Colace up to 3 times a day for constipation. He is taking his n ormally prescribed Eliquis 2.5 mg twice a day for DVT prophylaxis. He will follow up in the office w cinthya Canada 10 to 14 days for incision check and suture removal. He was instructed to call Dr. Hipolito andrews or go immediately to the ER should he develop any new fevers, chills, incision pain, redness, or d rainage. He was instructed to go immediately to the ER should he develop chest pain or shortness of breath. ONIEL OLGUIN [id number]/[facility] #: [id number]
== END 2018-02-06 18:05 | disposition home health service (06) | DRG 470 ==
LOC: AA 08:45 → SSU 15:54
PROVIDERS: ADMIT Orthopaedic Surgery Adult Reconstructive Orthopaedic Surgery; ATTEND Internal Medicine
PROC: 0SRC0J9 Replacement of Right Knee Joint with Synthetic Substitute, Cemented, Open Approach (ICD-10-PCS; principal; 2018-02-02 11:00)
DX: M17.11 Unilateral primary osteoarthritis, right knee (principal); E87.1 Hypo-osmolality and hyponatremia; M35.3 Polymyalgia rheumatica; I10 Essential (primary) hypertension; N40.0 Benign prostatic hyperplasia without lower urinary tract symptoms; K58.9 Irritable bowel syndrome, unspecified; E11.9 Type 2 diabetes mellitus without complications; I48.0 Paroxysmal atrial fibrillation; J30.9 Allergic rhinitis, unspecified; M31.6 Other giant cell arteritis; M25.761 Osteophyte, right knee; Z83.3 Family history of diabetes mellitus; Z88.2 Allergy status to sulfonamides; Z82.0 Family history of epilepsy and other diseases of the nervous system; Z83.79 Family history of other diseases of the digestive system; Z72.89 Other problems related to lifestyle; Z80.0 Family history of malignant neoplasm of digestive organs; Z82.61 Family history of arthritis; Z82.49 Family history of ischemic heart disease and other diseases of the circulatory system; Z98.41 Cataract extraction status, right eye; Z87.891 Personal history of nicotine dependence
CPT/HCPCS: 36415; 80048; 80076; 81003; 81015; 83735; 83930; 83935; 84300; 85014; 85018; 85025; 85049; 85610; 87086; 93005; 93970; A9270-GY; C1776; G8978-GP-CJ; G8978-GP-CK; G8978-GP-CL; G8978-GP-CM; G8979-GP-CI; G8979-GP-CJ; G8979-GP-CK; G8987-GO-CL; G8988-GO-CJ; J0690; J2250; J2270; J2405; J2704; J2795; J3010